=== PATIENT | male | born 1960 | race Two or more races ===

== ENCOUNTER → 2020-01-26 10:06 | Outpatient (BNVA) | payer SELFPAY | PROVIDERS: PCP Internal Medicine; Visit Provider Internal Medicine | DX: S33.9XXD Sprain of unspecified parts of lumbar spine and pelvis, subsequent encounter (principal); M25.552 Pain in left hip; W18.30XD Fall on same level, unspecified, subsequent encounter | CPT/HCPCS: 72100; 73502; 99203 ==

== ENCOUNTER → 2020-01-31 13:02 | Outpatient (BNVA) | payer SELFPAY | PROVIDERS: PCP Family Medicine; Visit Provider Internal Medicine | DX: R10.2 Pelvic and perineal pain (principal); M54.9 Dorsalgia, unspecified; Z91.81 History of falling | CPT/HCPCS: 99214 ==

== ENCOUNTER → 2020-02-07 09:48 | Outpatient (BNVA) | payer SELFPAY | PROVIDERS: PCP Family Medicine; Visit Provider Internal Medicine | DX: M25.552 Pain in left hip (principal); Z91.81 History of falling | CPT/HCPCS: 99214 ==

== ENCOUNTER → 2020-02-20 09:41 | Outpatient (BNVA) | payer SELFPAY | PROVIDERS: PCP Family Medicine; Visit Provider Internal Medicine | DX: M54.9 Dorsalgia, unspecified (principal); M25.552 Pain in left hip; M25.551 Pain in right hip; M79.605 Pain in left leg; M79.604 Pain in right leg; Z91.81 History of falling | CPT/HCPCS: 99213 ==

== ENCOUNTER 2020-03-05 08:00 | Outpatient (RCR) | payer OTHER, SELFPAY ==
[2020-01-30 08:12] VITALS: PULSE 49; O2SAT 97
--- NOTE | 2020-01-30 12:31 | MHC.PT.EP ---
[facility] [place] Office [place] Office [place] Office [address] Janett Casper [address] [phone] F: [phone] F: [phone] F: [phone] F: [phone] Physical Therapy Plan of Care Date of Evaluation: 01/30/20 Date of Surgery: Diagnosis: Fall with musculoskeletal pain (specifically left lower back, buttocks/hip, and lateral left upper leg above the knee joint). Assessment: Pt is a 59 y/o male referred to skilled PT for musculoskeletal pain following a fall at work on Nov 22, 2019. Pt specifically has left low back, hip, and lateral upper leg pain. Assessment reveals mild decreased lumbar ROM (flexion most limited followed by B lateral flexion), impaired hip ROM, decreased hip strength, pain w/ active and passive motion of the hip, tenderness to palpation, mild gait deviations, SI joint asymmetries, (+) SI provocation tests, mild muscle length deficits (L quad, B HS, B hip flexors), pain w/ PA mobs to lumbar spine, and impaired posture. Related functional limitations include: difficulty transitioning from sit to stand, sleeping, rolling over in bed, walking, standing, squatting, and lifting. Pt may have a directional preference towards extension. However, I assessed and corrected his SI joint today and will re-assess NV. MET performed for L anterior innominate rotation. ? L unilaterally extended sacrum. MET limited due to pain. Frequency and Duration: The patient will be seen 2x/week for 6 weeks, minimum of 38 minutes. Short Term Goals: -In 2 weeks, Pt to improve HS length B by at least 8 degrees. -In 3 weeks, Pt to report less than 3/10 pain when getting in/out of bed and rolling over in bed. [place] Goals: -In 6 weeks, Pt to improve LEFI by at least 9 points. -In 6 weeks, Pt to report minimal centralized low back pain only. -In 6 weeks, Pt to demonstrate ability to perform a functional squat w/ proper body mechanics. Treatment Plan: Modalities to reduce pain, spasms and effusion. Manual therapy to restore motion and function. Therapeutic exercise to improve strength and flexibility. Neuromuscular re-education for posture and balance. Therapeutic activities to return to functional activities of daily living. Please sign and return to therapist. Thank you for your referral.
--- NOTE | 2020-04-15 11:00 | MHC.PT.DC ---
[facility] [place] Office [place] Office [place] Office [address] Janett Casper 140 [facility] [phone] F: [phone] F: [phone] F: [phone] F: [phone] Physical Therapy Discharge Report Diagnosis: Fall with musculoskeletal pain (specifically left lower back, buttocks/hip, and lateral left upper leg above the knee joint). Date of Surgery: Date of Evaluation: 01/30/20 Date of Discharge: 04/15/20 Treatments to Date: 11 Cancellations to Date: 0 No Shows to Date: 0 Discharge Status: Recommend MD Follow-up Discharge Summary: Pt has not been seen since 03/07. He was seen for 11 visits s/p work related injury resulting in low back pain. Physical therapy could not help to reduce his pain at all. I suggested to the Pt we hold PT and recommended MD follow up. He has not followed up to schedule additional visits. He will require a new script for PT if he were to return for treatment. Electronically signed by: Teresa Spangler PT, DPT Please sign and return to therapist. Thank you for your referral.
== END 2020-04-15 12:29 | disposition other institution (70) ==
LOC: HO.PT 08:00
PROVIDERS: PCP Family Medicine; Visit Provider Internal Medicine
DX: M79.10 Myalgia, unspecified site (principal); Z91.81 History of falling
CPT/HCPCS: 97014; 97110; 97112; 97140; 97161

== ENCOUNTER 2020-03-05 08:59 | Emergency (ER) | payer SELFPAY ==
[2020-03-05 09:05] VITALS: BP 156/93; PULSE 50; RESP 16; TEMP 36.7; O2SAT 98; BMI 33.0
--- NOTE | 2020-03-05 09:39 | XR_ITS ---
EXAMINATION: XR LUMBOSACRAL SPINE CLINICAL INFORMATION: Low back pain. COMPARISON: Previous exam January 2020 TECHNIQUE: Three views of the lumbosacral spine. FINDINGS: Bone alignment is normal. No fracture or dislocation is seen. Disc spaces are normal. There are small osteophytes at the L3-L4 disc space level. There is mild atherosclerotic disease. XR/XR lumbar spine 2-3V IMPRESSION: Mild degenerative changes.
--- NOTE | 2020-03-05 09:40 | ED.BACK ---
HPI - Back Pain/Injury General Chief Complaint: Back Pain/Injury Stated Complaint: back inj,work related Time Seen by Provider: 03/05/20 09:21 Source: patient Mode of arrival: ambulatory History of Present Illness HPI Narrative: 59-year-old male with a past medical history of hypertension, hyperlipidemia presenting to the ED complaining acute on left-sided low back pain radiating down left lower extremity since November when he had a fall at work. Admits has seen PCP & obtained hip x-rays that were WNL, and has been doing physical therapy with little relief. Believes something is wrong with his back. Denies numbness, tingling, urinary incontinence/retention, dysuria/hematuria, recent falls or trauma since prior incident MD elicited complaint: back pain Related Data Previous Rx's Medication Instructions Recorded acetaminophen [Tylenol Extra 500 mg PO Q6H PRN #20 tab 03/05/20 Strength] cyclobenzaprine 5 mg PO Q8H PRN 5 Days #14 tab 03/05/20 lidocaine [Lidoderm] 1 patch TOPICAL DAILY PRN #30 ea 03/05/20 MDD remove after 12 hours naproxen 500 mg PO BID PRN 10 Days #20 tab 03/05/20 tramadol 50 mg PO Q6H PRN 3 Days #9 tab 03/05/20 Allergies Allergy/AdvReac Type Severity Reaction Status Date / Time No Known Allergies Allergy Verified 03/05/20 09:05 Review of Systems Review of Systems: Constitutional: No Weight loss, No Fever, No Chills Gastrointestinal: No Nausea, No Vomiting, No Abdominal pain Genitourinary: No Dysuria, No Urinary Frequency, No Hematuria, No Urinary Incontinence, No Flank Pain Musculoskeletal: +back pain pain, No Myalgias, No Joint Swelling Skin: No Skin Lesions, No rash Neuro: No Weakness, No Numbness, No Paresthesias Yes all other systems are reviewed and are negative Neurologic: Denies Sensory deficit (Neuro) [facility] Past Medical History Attestation statement: The following information was validated with the patient. Medical History (Updated 03/05/20 @ 10:35 by ADELITA Vasquez) Heart murmur High cholesterol HTN (hypertension) Surgical History (Updated 03/05/20 @ 09:11 by Astrid Montez) H/O hernia repair Social History Social History Smoked in Last 30 Days: No Advance Directives: No Advance Directives Information Provided: Yes Physical Exam Vital Signs: Vital Signs: Last Vital Signs Temp 98.1 F 03/05/20 09:05 Pulse 50 03/05/20 09:05 Resp 16 03/05/20 09:05 BP 156/93 H 03/05/20 09:05 Pulse Ox 98 03/05/20 09:05 Body Mass Index 33.0 Const: General: cooperative and healthy appearing Orientation/consciousness: patient oriented x3 Limitations: no limitations HENMT: Head: Yes normal to inspection Ears: hearing grossly normal bilaterally General nose exam: Normal external nose present Face and sinus: Yes normal facial exam Eyes: General: appearance normal, both eyes and all related structures EOM: EOMs intact bilaterally Neck: Other: No midline cervical spinous tenderness Neck: Yes normal visual inspection Resp: Effort & Inspection: normal respiratory effort Cardio: Rate: regular rate GI: Inspection: Yes normal to inspection Palpation (GI): Soft to palpation : General: Yes no CVA tenderness Back/Spine/Pelvis: Other: No midline thoracic/lumbar spinous tenderness.+lower bilateral lumbar MSK tenderness with appreciable muscle spasm. No step-off Back: no CVA tenderness Skin: Rashes: no rashes Wounds: no wounds Neuro: Other: Ambulating with slow steady gait. No saddle anesthesia. General: patient oriented x3 Gait exam (Neuro): Normal gait present Motor exam (neuro): 5/5 motor strength present throughout Sensory Exam: No Sensory deficit (Neuro) Extrem: General: Yes normal to inspection Course Course Course Narrative: Lumbar x-ray showing mild degenerative changes MDM - Back Pain/Injury MDM Narrative Medical decision making narrative: On exam VS, NAD, no midline spinous tenderness or red flag symptoms. Likely acute on chronic MSK pain/muscle spasm/strain. Low concern for cauda equina/cord compression. Rule out subacute fracture as patient reports never had back x-rays Discharge Plan Discharge Clinical Impression: Sciatica Strain of lumbar region Qualifiers: Encounter type: initial encounter Qualified Code(s): S39.012A - Strain of muscle, fascia and tendon of lower back, initial encounter Patient Disposition: Home, Self-Care Instructions: Acute Low Back Pain (ED) Additional Instructions: Your pain is likely musculoskeletal Flexeril is a muscle relaxer, take at night as it makes you drowsy, do not drive, drink alcohol, or operate machinery while taking it Naproxen as an anti-inflammatory / pain medication, take with food Lidoderm patches are numbing patches, apply to painful area Tramadol an opiate pain medication, take only when pain is severe for the next 3 days In addition take Tylenol at home If symptoms persist or worsen, pain becomes unbearable, you developed urinary retention or incontinence, or weakness return to the ED You need to follow-up with her doctor, possibly need an MRI in the future Prescriptions: New acetaminophen [Tylenol Extra Strength] 500 mg tablet 500 mg PO Q6H PRN (Reason: pain or fever) Qty: 20 RF: 0 lidocaine [Lidoderm] 5 % adhesive patch,medicated 1 patch topical DAILY MDD remove after 12 hours PRN (Reason: pain) Qty: 30 RF: 0 naproxen 500 mg tablet 500 mg PO BID PRN (Reason: pain) 10 Days Qty: 20 RF: 0 cyclobenzaprine 5 mg tablet 5 mg PO Q8H PRN (Reason: pain (scale score 7-10)) 5 Days Qty: 14 RF: 0 tramadol 50 mg tablet 50 mg PO Q6H PRN (Reason: severe pain (scale score 7-10)) 3 Days Qty: 9 RF: 0 Referrals: Jus Stout MD [Physician] - 2 days Cassius Dumont MD [Physician] - 2 days Physician,Unknown [Primary Care Provider] - 2 days (Your primary care doctor)
[2020-03-05] MEDS: Ketorolac Tromethamine 15 MG/ML VIAL IM (09:48)
--- NOTE | 2020-03-05 10:24 | PC.NURSE ---
reports a little relief after toradol injection but continues to rate 8/10
== END 2020-03-05 10:59 | disposition home or self-care (01) ==
PROVIDERS: Emergency Provider Emergency Medicine
DX: S39.012A Strain of muscle, fascia and tendon of lower back, initial encounter (principal); M54.42 Lumbago with sciatica, left side; M54.41 Lumbago with sciatica, right side; Z79.899 Other long term (current) drug therapy
CPT/HCPCS: 72100; 96372; 99284; J1885

== ENCOUNTER 2023-02-02 09:50 | Outpatient (AMB) | payer OTHER, SELFPAY ==
--- NOTE | 2023-02-02 11:14 | MHC.OFFWIV ---
Intake Vital Signs 02/02/23 11:18 Height 5 ft 10 in Weight 223 lb BMI 32.0 BP 142/80 H Blood Pressure Location Lt brachial Position Sitting Respiration 20 Pulse 45 L Pulse Source Pulse Oximeter Temp 98.8 F Temp Source Oral Pulse Oximetry (%) 99 Oxygen Delivery Method Room Air Intake Visit Reasons: [employer]ER 8 weeks mucus chest pain vomiting [phone] Intake Note: Patient is here with illness for 8 weeks, with pneumonia, chest congestion, vomitted once in 8 weeks, coughing up green/yellow mucous, and headaches. Allergies No Known Allergies Allergy (Verified 02/02/23 11:16) Do you need a note to return to daycare/school/sports/work: No HPI HPI Comments History of Present Illness Details Patient is a 62-year-old male in today for a sick visit. He states that for the past 8 weeks he has noticed a cough, sore throat, which has progressively gotten worse over time. He states that he has been coughing up green phlegm and mucus. Denies any fever. Admits SOB on exertion. States he has reproducible chest pain which he believes is from coughing. He has history of pneumonia. He also has COPD and diabetes type 2, which she has not taken any medication for in a while due to running out and insurance issues. He states that it feels similar to episodes of pneumonia that he has had in the past. He did have 1 episode of vomiting over the past 8 weeks which happened 3 days prior to appointment. Head is normocephalic, TMs are intact with effusion. Pharynx normal, nares normal, no mastoid tenderness. No lymphadenopathy. Patient is in no acute distress. He has slight expiratory wheeze. In office EKG demonstrated abnormalities. Patient has notable dyspnea on exertion, it is taking him a couple minutes to catch his breath after walking short distance. In office chest x-ray demonstrated hypertrophy of left-sided heart. Patient likely has upper respiratory infection but cannot rule out other more insipidus causes of dyspnea on exertion. It is my recommendation for the patient to go immediately to the emergency room. I have discussed with patient this option and he is agreeable. He has declined right by ambulance instead will get right ride by personal vehicle. Expect was called to [facility]. Patient is comfortable with this plan. [facility] Medical History (Updated 03/06/20 @ 00:00 by Background Daemon) Heart murmur High cholesterol HTN (hypertension) Surgical History (Updated 03/05/20 @ 09:11 by Astrid Montez) H/O hernia repair Physical Exam Vital Signs: Last Vital Signs Temp 98.8 F 02/02/23 11:18 Pulse 45 L 02/02/23 11:18 Resp 20 02/02/23 11:18 BP 142/80 H 02/02/23 11:18 Pulse Ox 99 02/02/23 11:18 Oxygen Delivery Method Room Air 02/02/23 11:18 BMI result Body Mass Index 32.0 Assessment & Plan Assessment & Plan (1) Dyspnea on exertion: Code(s): R06.09 - Other forms of dyspnea Plan Patient has been referred to the emergency room for evaluation and workup. Called [facility] to give expect. Patient is agreeable to this plan but will travel by private vehicle. Orders: Orders AMB EKG-In Office Today R07.89 - Other chest pain XR chest 2V Today R07.89 - Other chest pain Coding Level of Care Code New Pt Level 4 (55546) Diagnoses Dyspnea on exertion R06.09 Time Spent (min) 25
[2023-02-02 11:18] VITALS: BP 142/80; PULSE 45; RESP 20; TEMP 37.1; O2SAT 99; BMI 32.0
== END 2023-02-02 12:31 | disposition home or self-care (01) ==
PROVIDERS: PCP Nurse Practitioner Family; Visit Provider Nurse Practitioner Primary Care
DX: R06.09 Other forms of dyspnea (principal)
CPT/HCPCS: 99204

== ENCOUNTER 2023-02-02 11:50 | Outpatient (REF) | payer OTHER, SELFPAY ==
--- NOTE | ~2023-02-02 | XR_ITS ---
EXAMINATION: XR CHEST CLINICAL INFORMATION: Chest pain COMPARISON: None available. TECHNIQUE: 2 views of the chest were obtained. FINDINGS: Bilateral low lung volumes. Interstitial prominence. No pneumothorax. Trachea is midline. Cardiomediastinal silhouette is not enlarged. No large pleural effusion. Degenerative changes of the thoracolumbar spine. Soft tissues are unremarkable. XR/XR chest 2V IMPRESSION: 1. Bilateral low lung volumes. 2. Interstitial prominence.
== END 2023-02-02 11:51 | disposition home or self-care (01) ==
LOC: HO.HMGCX 11:50
PROVIDERS: Visit Provider Nurse Practitioner Primary Care
DX: R07.89 Other chest pain (principal)
CPT/HCPCS: 71046

== ENCOUNTER 2023-02-02 12:28 | Emergency (ER) | payer OTHER, MEDICAID, SELFPAY ==
[2023-02-02] VITALS (7 sets, daily range): BP systolic 147–201; BP diastolic 77–94; PULSE 40–57; RESP 14–20; TEMP 36.4–37.1; O2SAT 95–100; BMI 31.6
--- NOTE | ~2023-02-02 | CT_ITS ---
EXAMINATION: CT ANGIOGRAM OF THE CHEST WITH AND WITHOUT CONTRAST (CT PULMONARY ANGIOGRAM FOR PE) CLINICAL INFORMATION: Reason for Exam shortness of breath, elevated D-dimer, BNP, trop COMPARISON: None available. TECHNIQUE: Prior to contrast administration, noncontrast localization images were obtained. Subsequently, multidetector volumetric imaging was performed from the thoracic inlet to below the diaphragms following the administration of 80 mL Omnipaque 350 intravenous contrast. No contrast reaction reported Sagittal, coronal, and MIP oblique sagittal reformatted images were obtained on the CT workstation, uploaded to PACS, and reviewed. This CT examination was performed using dose optimization techniques as appropriate, variously including the following: *Automated exposure control *Adjustment of mA and/or kV according to patient size (this includes techniques or standardized protocols for targeted exams where dose is matched to indication/reason for exam; i.e. extremities or head) *Use of iterative reconstruction technique Total exam dose-length product 392 mGy-cm FINDINGS: QUALITY OF STUDY/CONTRAST BOLUS: Satisfactory. PULMONARY ARTERIES: No pulmonary emboli. THORACIC AORTA: No aneurysm. LUNG: No focal consolidation, nodules or masses. PLEURA: No pleural effusion or pneumothorax. MEDIASTINUM: Normal heart size. No pericardial effusion. No hilar or mediastinal lymphadenopathy. No evidence of septal bowing or right heart strain. CORONARY ARTERY CALCIFICATION: None visualized on this study. CHEST WALL/AXILLA: No axillary or internal mammary lymphadenopathy. OSSEOUS STRUCTURES: No acute or suspicious osseous abnormality. UPPER ABDOMEN: Unremarkable. No reflux of contrast into the hepatic veins to suggest elevated right heart pressures. CT/CT angio chest PE protocol IMPRESSION: Unremarkable examination. No evidence of pulmonary embolism. VTE: negative.
--- NOTE | ~2023-02-02 | XR_ITS ---
EXAMINATION: XR CHEST CLINICAL INFORMATION: Chest pain, SOB. COMPARISON: Chest 02/02/2023 TECHNIQUE: 2 views of the chest were obtained. FINDINGS: No significant abnormality is noted involving the heart, lungs, mediastinum, bony thorax or soft tissues. XR/XR chest 2V IMPRESSION: Unremarkable chest examination.
--- NOTE | 2023-02-02 12:34 | ED.GENADULT ---
HPI - General Adult General Chief complaint: Dyspnea Stated complaint: Abnormal ekg sent by [facility] walk in Time Seen by Provider: 02/02/23 16:31 History of Present Illness HPI narrative: The patient is a 62-year-old male who was referred to the emergency room from an urgent care center. The patient presented to the Urgent Care Center complaining of almost 8 weeks of cough and sore throat which he felt was getting progressively worse. He says that he recently had a change in his insurance and therefore he has not been able to see his regular doctor or take any regular medications. He says that he has a history of hypertension and hyperlipidemia. He says he is a former smoker. He quit smoking 6 years ago. He does not know if he has had a fever. The patient says that he was concerned that his symptoms have been going on for several weeks and therefore went to the urgent care center. He was referred here. He was apparently offered an ambulance to get here but was able to contact a friend for arrival by private vehicle. Related Data Previous Rx's Medication Instructions Recorded acetaminophen 500 mg tablet 500 mg PO Q6H PRN pain or fever 03/05/20 (Tylenol Extra Strength) #20 tabs cyclobenzaprine 5 mg tablet 5 mg PO Q8H PRN pain (scale score 03/05/20 7-10) 5 days #14 tabs lidocaine 5 % topical patch 1 patch topical DAILY PRN pain #30 03/05/20 (Lidoderm) ea naproxen 500 mg tablet 500 mg PO BID PRN pain 10 days #20 03/05/20 tabs tramadol 50 mg tablet 50 mg PO Q6H PRN severe pain 03/05/20 (scale score 7-10) 3 days #9 tabs albuterol sulfate 90 mcg/actuation 2 puff inhalation Q4-6H PRN 02/02/23 aerosol inhaler shortness of breath or wheezing #8.5 grams amlodipine 5 mg tablet 5 mg PO DAILY #30 tabs 02/02/23 Allergies Allergy/AdvReac Type Severity Reaction Status Date / Time No Known Allergies Allergy Verified 02/02/23 11:16 Review of Systems Review of Systems: Yes all other systems are reviewed and are negative [facility] Past Medical History Medical History (Updated 02/02/23 @ 21:58 by Elliott Hawkins MD) Heart murmur High cholesterol HTN (hypertension) Surgical History (Updated 03/05/20 @ 09:11 by Astrid Montez) H/O hernia repair Social History Smoked in Last 30 Days: No Use of substances other than those prescribed or required for medical reasons: No Advance Directives: No Advance Directives Information Provided: No Physical Exam ED Vital Signs: Vital Signs - 24 hr 02/02/23 12:33 02/02/23 17:00 02/02/23 17:20 Temperature 98.1 F 98.1 F 98.2 F Pulse Rate 50 43 L 54 Pulse Rate [Monitor] Respiratory Rate 20 16 16 Blood Pressure 173/93 H 176/86 H 147/83 H Pulse Oximetry 98 95 98 Oxygen Delivery Method Room Air Room Air Room Air 02/02/23 18:15 02/02/23 19:48 02/02/23 19:48 Temperature 98.7 F Pulse Rate 40 L 57 Pulse Rate [Monitor] 51 Respiratory Rate 14 18 Blood Pressure 201/94 H 183/82 H Pulse Oximetry 100 98 Oxygen Delivery Method Room Air Room Air 02/02/23 20:19 02/02/23 21:30 Temperature 97.6 F 98.4 F Pulse Rate 49 L 46 L Pulse Rate [Monitor] Respiratory Rate 16 15 Blood Pressure 180/77 H 184/88 H Pulse Oximetry 98 99 Oxygen Delivery Method Room Air Room Air BMI result Body Mass Index 31.6 Const Other: The patient is awake and alert. He is a pleasant 62-year-old. He does not appear in acute distress. HENMT Other: Face is symmetrical. Mucous membranes moist. Eyes Other: Pupils are round equal, conjunctivae are clear Neck Other: No JVD Resp Other: Breath sounds are fairly clear bilaterally. No francesco wheezing or crackles. No increased work of breathing. Cardio Other: The patient has regular rate and rhythm with no murmur. The rate was fundamentally regular with occasional irregularities. GI Other: The abdomen is soft and nontender. Skin Other: The skin is dry and unremarkable. Neuro Other: The patient is awake and alert. Face is symmetrical. Speech is clear. Moving all extremities normally. Grossly neurologically intact. Extrem Other: No peripheral edema Course Course Course Narrative: This is an RME: Additional HPI, ROS, PE not included below will be deferred to primary provider. This is a 89-extk-oft-male, with a hx of heart murmur, HTN, HLD, presenting to the emergency department with complaints of productive cough x 8 weeks, dyspnea on exertion. He has been without his medications for ?some time? due to insurance difficulties. An expect was called in from walk in clinic, concerning for first-degree AV block on EKG with QRS widening. Plan: Labs, EKG, chest x-ray, point of care glucose Medications Administered Discontinued Medications Generic Name Dose Route Start Last Admin Trade Name Markellq PRN Reason Stop Dose Admin Albuterol Sulfate 2 puff 02/02/23 21:04 02/02/23 22:20 Albuterol Sulfate 90 Mcg 8 Gm Inhaler INHALE 02/02/23 21:05 2 puff ONCE ONE Administration Amlodipine Besylate 5 mg 02/02/23 21:01 02/02/23 21:09 Amlodipine Besylate 5 Mg Tablet PO 02/02/23 21:02 5 mg ONCE ONE Administration Protocol Iohexol 100 ml 02/02/23 20:10 02/02/23 20:10 Iohexol 350 Mg/Ml 100 Ml Infus..Btl IV 02/02/23 20:11 65 ml ONCE ONE Administration Medical Decision Making Medical Decision Making [facility] Narrative: The patient is a pleasant 62-year-old male who presents saying he has had cough for almost 8 weeks that he wanted to get checked. He initially went to an urgent care and was referred to the emergency room here. Prior to my evaluation the patient had testing done including an EKG that shows sinus bradycardia at 57 beats per minute with first-degree AV block and frequent PVCs. Clinically the patient's history was not suggestive of an acute coronary syndrome but he had an initial troponin that was elevated at 56. A repeat troponin was 68. The patient's proBNP is elevated at 716. Patient's D-dimer was elevated at 744. A CT pulmonary angiogram showed no evidence of pulmonary embolism and also did not show any signs of pneumonia or other acute lung disease. Patient's CBC and differential were unremarkable. I discussed the case with the covering housekeeper. The patient's troponin rise is slight and given that his history is not suggestive of an acute coronary syndrome this does not seem to be a case requiring hospitalization. The patient was noted to be hypertensive and bradycardic. The patient says he is chronically bradycardic. He has not been on antihypertensive medications for some time because of an insurance change and a loss of his previous primary care doctor. He has a new primary care doctor but has not yet been able to get in to see him to get ongoing care. I will prescribe amlodipine with the patient's blood pressure. The patient was also concerned about his original complaint which was a sense of wheezing and respiratory congestion. He will be prescribed albuterol. Lab Data 02/02/23 13:04 02/02/23 13:04 Labs: Lab Results 02/02/23 02/02/23 02/02/23 Range/Units 12:39 13:03 13:04 WBC 3.5 L (4.8-10.8) X10*3/uL RBC 4.77 (4.60-5.80) X10*6/uL Hgb 13.9 L (14.0-18.0) g/dl Hct 42.5 (42.0-52.0) % MCV 89.1 (80.0-98.0) fL MCH 29.1 (27.0-33.0) pg MCHC 32.7 (31.0-36.0) g/dl RDW 14.1 (11.0-16.0) % Plt Count 175 (160-400) X10*3/uL MPV 10.9 (9.4-12.4) fL Immature Gran % (Auto) 1.4 H (0.0-0.4) % Neut % (Auto) 48.0 (45-73) % Lymph % (Auto) 34.3 (20-40) % Tillman % (Auto) 10.9 (2-11) % Eos % (Auto) 4.0 (0-4) % Baso % (Auto) 1.4 (0-2) % Lymph # (Auto) 1.2 (1.2-4.9) X10*3/uL [place] # (Auto) 0.4 (0.1-1.2) X10*3/uL Eos # (Auto) 0.1 (0.0-0.4) X10*3/uL Baso # (Auto) 0.1 (0.0-0.2) X10*3/uL Abs Immat Gran (auto) 0.05 H (0.00-0.03) X10*3/uL Absolute Neuts (auto) 1.7 L (2.0-8.3) x10*3/uL Absolute Nucleated RBC 0.000 (0.0-0.012) X10*3/uL Nucleated RBC % (auto) 0.0 (0.0-0.2) /100WBC D-Dimer High Sensitivty NG/ML Sodium 139 (135-145) mmol/L Potassium 3.9 (3.3-5.1) mmol/L Chloride 109 H (96-108) mmol/L Carbon Dioxide 25 (22-29) mmol/L Anion Gap 9 L (12-20) BUN 17 H (9-16) mg/dL Creatinine 0.95 (0.5-1.4) mg/dL Estim Creat Clear Calc 94.2 Estimated GFR > 60 POC Glucose 98 (60-115) mg/dL Random Glucose 106 (60-115) mg/dL Calcium 8.6 (8.4-10.2) mg/dL Total Bilirubin 0.3 (0.0-1.0) mg/dL Direct Bilirubin 0.1 (0.0-0.5) mg/dL AST 22 (5-37) U/L ALT 20 (0-40) U/L Alkaline Phosphatase 54 (39-117) U/L Troponin I High Sens 56.3 H (<3.5-35.0) ng/L C-Reactive Protein 0.16 (< or = 0.50) mg/dL B-Natriuretic Peptide 716 H (<100) pg/mL Total Protein 7.0 (6.5-8.0) g/dL Albumin 4.0 (3.5-5.0) g/dL Urine Color Yellow Urine Appearance Clear Urine pH 6.0 (5.0-9.0) Ur Specific [place] 1.015 (1.005-1.025) Urine Protein 30 (1+) H (Neg-Trace) mg/dL Urine Glucose (UA) Negative (Negative) mg/dL Urine Ketones Negative (Negative) mg/dL Urine Blood Negative (Negative) Urine Nitrite Negative (Negative) Ur Leukocyte Esterase Negative (Negative) Urine RBC 0-2 (0-2) /HPF Urine WBC 0-5 (0-5) /HPF Ur Squamous Epith Cells 0-2 (0-2) /HPF Urine Bacteria None Seen (None Seen) Hyaline Casts 0-2 (0-2) /LPF Influenza Type A (PCR) NEGATIVE (Negative) Influenza Type B (PCR) NEGATIVE (Negative) RSV RNA Qual (PCR) NEGATIVE (Negative) SARS-CoV-2 RNA (RT-PCR) NEGATIVE (Negative) 02/02/23 02/02/23 Range/Units 17:22 18:18 WBC (4.8-10.8) X10*3/uL RBC (4.60-5.80) X10*6/uL Hgb (14.0-18.0) g/dl Hct (42.0-52.0) % MCV (80.0-98.0) fL MCH (27.0-33.0) pg MCHC (31.0-36.0) g/dl RDW (11.0-16.0) % Plt Count (160-400) X10*3/uL MPV (9.4-12.4) fL Immature Gran % (Auto) (0.0-0.4) % Neut % (Auto) (45-73) % Lymph % (Auto) (20-40) % Tillman % (Auto) (2-11) % Eos % (Auto) (0-4) % Baso % (Auto) (0-2) % Lymph # (Auto) (1.2-4.9) X10*3/uL [place] # (Auto) (0.1-1.2) X10*3/uL Eos # (Auto) (0.0-0.4) X10*3/uL Baso # (Auto) (0.0-0.2) X10*3/uL Abs Immat Gran (auto) (0.00-0.03) X10*3/uL Absolute Neuts (auto) (2.0-8.3) x10*3/uL Absolute Nucleated RBC (0.0-0.012) X10*3/uL Nucleated RBC % (auto) (0.0-0.2) /100WBC D-Dimer High Sensitivty 744 NG/ML Sodium (135-145) mmol/L Potassium (3.3-5.1) mmol/L Chloride (96-108) mmol/L Carbon Dioxide (22-29) mmol/L Anion Gap (12-20) BUN (9-16) mg/dL Creatinine (0.5-1.4) mg/dL Estim Creat Clear Calc Estimated GFR POC Glucose 118 H (60-115) mg/dL Random Glucose (60-115) mg/dL Calcium (8.4-10.2) mg/dL Total Bilirubin (0.0-1.0) mg/dL Direct Bilirubin (0.0-0.5) mg/dL AST (5-37) U/L ALT (0-40) U/L Alkaline Phosphatase (39-117) U/L Troponin I High Sens 68.0 H (<3.5-35.0) ng/L C-Reactive Protein (< or = 0.50) mg/dL B-Natriuretic Peptide (<100) pg/mL Total Protein (6.5-8.0) g/dL Albumin (3.5-5.0) g/dL Urine Color Urine Appearance Urine pH (5.0-9.0) Ur Specific [place] (1.005-1.025) Urine Protein (Neg-Trace) mg/dL Urine Glucose (UA) (Negative) mg/dL Urine Ketones (Negative) mg/dL Urine Blood (Negative) Urine Nitrite (Negative) Ur Leukocyte Esterase (Negative) Urine RBC (0-2) /HPF Urine WBC (0-5) /HPF Ur Squamous Epith Cells (0-2) /HPF Urine Bacteria (None Seen) Hyaline Casts (0-2) /LPF Influenza Type A (PCR) (Negative) Influenza Type B (PCR) (Negative) RSV RNA Qual (PCR) (Negative) SARS-CoV-2 RNA (RT-PCR) (Negative) Discharge Plan Discharge Clinical Impression: Diffuse wheezing, Hypertension, Bradycardia Patient Disposition: Home, Self-Care Additional Instructions: Your testing today does not show any signs of pneumonia or significant infection. Please use the albuterol inhaler 2 puffs every 4 hours as needed for coughing or wheezing. You also had elevated blood pressure here in the emergency room. Please use the amlodipine once a day as prescribed. Please contact your primary care doctor's office to see if they can see you earlier than your currently scheduled. Additionally I have given you the name and number of the cardiology office. I think it would be good for you to make a cardiology appointment as well. Please call the office to see if you can be seen in the next couple of weeks. Return to the emergency room if significantly worse. Prescriptions: New amlodipine 5 mg tablet 5 mg PO DAILY Qty: 30 0RF albuterol sulfate 90 mcg/actuation HFA aerosol inhaler 2 puff inhalation Q4-6H PRN (Reason: shortness of breath or wheezing) Qty: 8.5 0RF No Action acetaminophen [Tylenol Extra Strength] 500 mg tablet 500 mg PO Q6H PRN (Reason: pain or fever) Qty: 20 0RF lidocaine [Lidoderm] 5 % adhesive patch,medicated 1 patch topical DAILY MDD remove after 12 hours PRN (Reason: pain) Qty: 30 0RF Rx Instructions: leave on most painful area for up to 12 hrs naproxen 500 mg tablet 500 mg PO BID PRN (Reason: pain) 10 Days Qty: 20 0RF cyclobenzaprine 5 mg tablet 5 mg PO Q8H PRN (Reason: pain (scale score 7-10)) 5 Days Qty: 14 0RF tramadol 50 mg tablet 50 mg PO Q6H PRN (Reason: severe pain (scale score 7-10)) 3 Days Qty: 9 0RF Referrals: Trey Dickson FNP-[facility] [Primary Care Provider] - Bossman John MD [Physician] - (Patient with likely LVH, significant hypertension, chronic bradycardia)
--- NOTE | 2023-02-02 12:37 | ECG_ITS ---
Test Reason : CP/ABNORMAL EKG Blood Pressure : / mmHG Vent. Rate : 057 BPM Atrial Rate : 043 BPM P-R Int : 268 ms QRS Dur : 136 ms QT Int : 496 ms P-R-T Axes : 049 -41 139 degrees QTc Int : 482 ms Marked sinus bradycardia with 1st degree A-V block with frequent Premature ventricular complexes Left anterior fascicular block Left ventricular hypertrophy with QRS widening and repolarization abnormality ( R in aVL , Henry product , Romhilt-Garces ) Cannot rule out Anteroseptal infarct , age undetermined Abnormal ECG No previous ECGs available Referred By: Shawanda Mendez Electronically Signed By:ABILIO MEREDITH MD
[2023-02-02 12:44] LABS: Glucose, Whole Blood 98 mg/dL (60-115)
[2023-02-02 13:14] LABS: MANUAL DIFF FLAG NO
[2023-02-02 13:17] LABS: Basophils Absolute Auto 0.1 X10*3/uL (0.0-0.2); Basophils Percent Auto 1.4 % (0-2); Eosinophils Absolute Auto 0.1 X10*3/uL (0.0-0.4); Hematocrit 42.5 % (42.0-52.0); Hemoglobin 13.9 g/dl (14.0-18.0); Imm Gran Abs Auto 0.05 X10*3/uL (0.00-0.03); Imm Gran Pct Auto 1.4 % (0.0-0.4); Lymphocytes Absolute Auto 1.2 X10*3/uL (1.2-4.9); Lymphocytes Percent Auto 34.3 % (20-40); Mean Corpuscular HGB Conc 32.7 g/dl (31.0-36.0); Mean Corpuscular Hemoglobin 29.1 pg (27.0-33.0); Mean Corpuscular Volume 89.1 fL (80.0-98.0); Mean Platelet Volume 10.9 fL (9.4-12.4); Monocytes Absolute Auto 0.4 X10*3/uL (0.1-1.2); Monocytes Percent Auto 10.9 % (2-11); Neutrophils Absolute Auto 1.7 x10*3/uL (2.0-8.3); Platelet Count 175 X10*3/uL (160-400); Red Blood Count 4.77 X10*6/uL (4.60-5.80); Red Cell Distribution Width 14.1 % (11.0-16.0); White Blood Count 3.5 X10*3/uL (4.8-10.8)
[2023-02-02 13:19] LABS: Appearance Urine Clear; Color Urine Yellow; Glucose Urine UA Negative (Negative); Leukocyte Esterase Urine Negative (Negative); Nitrite Urine Negative (Negative); Specific Gravity - Urine 1.015 (1.005-1.025); UMIC TRIGGER UACC YES; Urine Blood Negative (Negative); Urine Ketones Negative (Negative); Urine Protein 30 (1+) mg/dL (Neg-Trace)
[2023-02-02 13:24] LABS: Bacteria Urine None Seen (None Seen); Hyaline Casts Urine 0-2 /LPF (0-2); RBC Urine 0-2 /HPF (0-2); Squamous Epithelial Cell Urine 0-2 /HPF (0-2); WBC Urine 0-5 /HPF (0-5)
[2023-02-02 13:33] LABS: Alanine Aminotransferase 20 U/L (0-40); Alkaline Phosphatase 54 U/L (39-117); Anion Gap 9 (12-20); Aspartate Amino Transferase 22 U/L (5-37); Bilirubin Direct 0.1 mg/dL (0.0-0.5); Bilirubin Total 0.3 mg/dL (0.0-1.0); Blood Urea Nitrogen 17 mg/dL (9-16); Calcium 8.6 mg/dL (8.4-10.2); Carbon Dioxide 25 mmol/L (22-29); Chloride 109 mmol/L (96-108); Creatinine Clr Calc Pharmacy 94.2; Estimated Glomerular Filt Rate > 60; Glucose Random 106 mg/dL (60-115); Potassium 3.9 mmol/L (3.3-5.1); Sodium 139 mmol/L (135-145)
[2023-02-02 13:35] LABS: Troponin-I High Sensitivity 56.3 ng/L (<3.5-35.0)
[2023-02-02 13:36] LABS: B Type Natriuretic Peptide 716 pg/mL (<100)
[2023-02-02 13:55] LABS: Influenza A PCR NEGATIVE (Negative); Influenza B PCR NEGATIVE (Negative); Resp Syncy Virus RNA Qual PCR NEGATIVE (Negative); SARS COV2 PCR INHOUSE NEGATIVE (Negative)
[2023-02-02 17:03] LABS: C Reactive Protein 0.16 mg/dL (< or = 0.50)
--- NOTE | 2023-02-02 17:21 | MHC.EDTECH ---
THIS PCT JUST ASSUMED CARE OF pT ,VITALS TAKEN ,BLOOD DRAWN AND SENT TO LAB ,THIS PCT NOTICE THAT PT BLOOD PRESSURE WAS HIGH AND HEART RATE IS LOW ,MEMO STALEY AWARE ,PT WAS HOOKED UP TO [employer] ,CALL HUERTAS WITHIN PT REACH .
[2023-02-02 17:39] LABS: D Dimer High Sensitivity 744 NG/ML
--- NOTE | 2023-02-02 18:05 | ECG_ITS ---
Test Reason : SOB Blood Pressure : / mmHG Vent. Rate : 041 BPM Atrial Rate : 041 BPM P-R Int : 272 ms QRS Dur : 136 ms QT Int : 508 ms P-R-T Axes : 020 -40 148 degrees QTc Int : 419 ms Marked sinus bradycardia with 1st degree A-V block with occasional Premature ventricular complexes Left anterior fascicular block Left ventricular hypertrophy with QRS widening and repolarization abnormality ( R in aVL , [place] product , Romhilt-Garces ) Cannot rule out Anteroseptal infarct (cited on or before 02-FEB-2023) Abnormal ECG When compared with ECG of 02-FEB-2023 12:48, QT has shortened Referred By: Elliott Hawkins Electronically Signed By:ABILIO MEREDITH MD
--- NOTE | 2023-02-02 18:19 | MHC.EDTECH ---
PATIENT REPEATED EKG TAKEN AND WAS READ BY PROVIDER ,BLOOD SUGAR CHECK ,MEMO PEARSON AWARE OF RESULT OF 118 ,VITALS TAKEN ,RN AWARE OF HIGH BLOOD PRESSURE .
[2023-02-02 18:46] LABS: Glucose, Whole Blood 118 mg/dL (60-115)
--- NOTE | 2023-02-02 19:55 | PC.NURSE ---
PT IN CT SCAN AT THIS TIME.
[2023-02-02] MEDS: iohexoL 350 MG/ML 100 ML INFUS..BTL IV (20:10)
--- NOTE | 2023-02-02 20:29 | MHC.EDTECH ---
Provider said Patient cant eat ,pt was given tuna fish sandwich and rosa shaheed .
[2023-02-02] MEDS: amLODIPine Besylate 5 MG TABLET PO (21:09)
[2023-02-02] MEDS: Albuterol Sulfate 90 MCG 8 GM INHALER 2 PUFF INHALE (22:20)
== END 2023-02-03 02:10 | disposition home or self-care (01) ==
PROVIDERS: Physician Assistant Medical; Emergency Provider Emergency Medicine; PCP Nurse Practitioner Family
DX: R06.02 Shortness of breath (principal); R00.1 Bradycardia, unspecified; R05.9 Cough, unspecified; R06.2 Wheezing; J02.9 Acute pharyngitis, unspecified; I10 Essential (primary) hypertension; Z20.822 Contact with and (suspected) exposure to COVID-19; Z20.828 Contact with and (suspected) exposure to other viral communicable diseases; Z79.899 Other long term (current) drug therapy
CPT/HCPCS: 0241U; 36415; 71046; 71275; 80048; 80076; 81001; 82947; 83880; 84484; 85025; 85379; 86140; 93005; 99284; 99285; Q9967

== ENCOUNTER 2023-03-02 10:49 | Outpatient (AMB) | payer OTHER, SELFPAY ==
--- NOTE | 2023-03-02 12:20 | MHC.OFFWIV ---
Intake Vital Signs 03/02/23 12:28 Height 5 ft 10 in Weight 239 lb 2 oz BMI 34.3 BP 140/80 H Blood Pressure Location Rt brachial Position Sitting Pulse 60 Pulse Source Pulse Oximeter Temp 97.6 F Temp Source Temporal Artery Scan Pulse Oximetry (%) 99 Oxygen Delivery Method Room Air Intake Visit Reasons: EP cough congestion for 13weeks [id number] Intake Note: Pt is here c/o cough, body aches, and not feeling well for 13 weeks. Pt states otc medications are not working. Patient Tobacco Use Status: Never used Tobacco Allergies No Known Allergies Allergy (Verified 03/02/23 12:20) HPI HPI Comments History of Present Illness Details This is a 62-year-old male with a past medical history of hypertension, asthma, COPD not currently oxygen dependent and xef-liyibtv-gjmusvaci diabetes who does not currently have a PCP of record and is without medications presenting for evaluation of fatigue, nocturnal cough and occasional shortness of breath that he has had for the past 14 weeks. Patient also reports urinary frequency without dysuria. He denies having any fevers, chills, chest pain, not vomiting no pain or back pain. [facility] Medical History Heart murmur High cholesterol HTN (hypertension) Surgical History (Updated 03/05/20 @ 09:11 by Astrid Montez) H/O hernia repair Social History Patient Tobacco Use Status: Never used Tobacco Review of Systems Const All systems reviewed & are unremarkable except as noted in HPI and below Reports no additional complaints Eyes Reports no additional complaints ENT Reports no additional complaints Card Denies chest pain and Reports dyspnea Resp Reports cough and Reports dyspnea GI Reports no additional complaints Reports no additional complaints and Reports nocturia Neuro Reports no additional complaints Psych Reports no additional complaints Physical Exam Vital Signs: Last Vital Signs Temp 97.6 F 03/02/23 12:28 Pulse 60 03/02/23 12:28 BP 140/80 H 03/02/23 12:28 Pulse Ox 99 03/02/23 12:28 Oxygen Delivery Method Room Air 03/02/23 12:28 BMI result Body Mass Index 34.3 Pt is afebrile and is not hypoxic. Const General: cooperative, healthy appearing, comfortable and no acute distress Nutritional Appearance: well nourished Orientation/consciousness: patient oriented x3 Limitations: no limitations HEENT Head: Yes normal to inspection Ears: hearing grossly normal bilaterally, external ears normal, TM's normal bilaterally and EAC's normal General nose exam: Normal external nose present Face and sinus: Yes normal facial exam and No sinus tenderness Mouth: Normal oral and palatal mucosa present and moist mucous membranes Resp Effort & Inspection: normal respiratory effort, able to speak in complete sentences, normal respiratory pattern, no cough and no respiratory distress Auscultation: clear to auscultation bilaterally Cardio Rate: regular rate Rhythm: regular rhythm GI Palpation (GI): Soft to palpation, nontender and no guarding Skin General skin exam: no rashes or lesions noted Neuro General: patient oriented x3 Psych Appearance: grossly normal Mental Status: mental status grossly normal Insight: Good insight present (Psych) Judgement: Good judgement present (Psych) Results AMB Random Glucose (hemocue) AMB Random Glucose (hemocue) 100 mg/dL Last Edit by Linda Mason CMA on 03/02/23 13:31 AMB Urinalysis, Automated UA Leukoctes 0 Seth/uL Last Edit by Linda Mason CMA on 03/02/23 13:32 UA Nitrite Negative Last Edit by Linda Mason CMA on 03/02/23 13:32 UA Urobilinogen 0.2 mg/dL Last Edit by Linda Mason CMA on 03/02/23 13:32 UA Protein 30 mg/dL Last Edit by Linda Mason CMA on 03/02/23 13:32 UA pH 6.0 Last Edit by Linda Mason CMA on 03/02/23 13:32 UA Blood 0 Isaac/uL Last Edit by Linda Mason CMA on 03/02/23 13:32 UA Specific [place] 1.025 Last Edit by Linda Mason CMA on 03/02/23 13:32 UA Ketone Negative Last Edit by Linda Mason CMA on 03/02/23 13:32 UA Bilirubin 0 mg/dL Last Edit by Linda Mason CMA on 03/02/23 13:32 UA Glucose 0 mg/dL Last Edit by Linda Mason CMA on 03/02/23 13:32 Results Reviewed Results Reviewed: Laboratory Last Values Random Glu (Clinic) 100 mg/dL 03/02/23 13:29 Urine pH (Auto) 6.0 03/02/23 13:29 Specific [place] (Auto) 1.025 03/02/23 13:29 Urine Protein (Auto) 30 mg/dL 03/02/23 13:29 Glucose (UA)(Auto) 0 mg/dL 03/02/23 13:29 Urine Ketones (Auto) Negative 03/02/23 13:29 Urine Blood (Auto) 0 Isaac/uL 03/02/23 13:29 Urine Nitrite (Auto) Negative 03/02/23 13:29 Urine Bilirubin (Auto) 0 mg/dL 03/02/23 13:29 Urine Urobilinogen (Auto) 0.2 mg/dL 03/02/23 13:29 Leukocyte Esterase (Auto) 0 Seth/uL 03/02/23 13:29 Glucose 100; no glucosuria on urinalysis. Assessment & Plan Assessment & Plan (1) COPD (chronic obstructive pulmonary disease): Code(s): J44.9 - Chronic obstructive pulmonary disease, unspecified Plan: Imaging including CTA chest reviewed from ED visit in January 2023. Will reinitiate Advair BID; follow-up with new PCP in April as previously scheduled for routine maintenance and primary care. Patient reports blood glucose never >150mg/dL but will keep a log of blood glucose values at home and bring to PCP appointment. Patient will return to urgent care for any blood glucose values consistently >300 or <60mg/dL. (2) Nocturnal polyuria: Code(s): R35.81 - Nocturnal polyuria Plan: Pt to track blood glucose values; urinalysis not consistent with glucosuria or UTI. Orders: Orders AMB Urinalysis Automated 03/02/23 Z13.9 - Encounter for screening, unspecified AMB Random Glucose (hemocue) 03/02/23 Z13.9 - Encounter for screening, unspecified Medications: New fluticasone propion-salmeterol 250-50 mcg/dose (Advair Diskus) 1 inh inhalation BID 1 ea 2RF Coding Level of Care Code New Pt Level 4 (49599) Diagnoses COPD (chronic obstructive pulmonary disease) J44.9 Nocturnal polyuria R35.81 Time Spent (min) 35
[2023-03-02 12:28] VITALS: BP 140/80; PULSE 60; TEMP 36.4; O2SAT 99; BMI 34.3
== END 2023-03-02 13:38 | disposition home or self-care (01) ==
PROVIDERS: PCP Nurse Practitioner Family; Visit Provider Physician Assistant
DX: J44.9 Chronic obstructive pulmonary disease, unspecified (principal); R35.81 Nocturnal polyuria
CPT/HCPCS: 81003; 82948; 99204; 99214

== ENCOUNTER → 2023-05-05 15:57 | Outpatient (AMB) | payer OTHER, SELFPAY ==
[2023-05-05 15:59] VITALS: BP 170/90; PULSE 47; O2SAT 96; BMI 34.3
--- NOTE | 2023-05-05 15:59 | MHC.PC.OV ---
Vital Signs 05/05/23 15:59 Height 5 ft 10 in Weight 239 lb BMI 34.3 BP 170/90 H Blood Pressure Location Lt brachial Position Sitting Pulse 47 L Pulse Source Pulse Oximeter Pulse Oximetry (%) 96 Oxygen Delivery Method Room Air Intake Visit Reasons: NPV / high bp /diabetic Intake Note: pt is here for new patient, establish maikol, hx of high blood pressure and diabetes Fire Assistant Required: No Accompanied by: Self / Same As Patient Allergies jardiance Allergy (Intermediate, Uncoded 05/05/23 16:40) Rash trulicity Allergy (Intermediate, Uncoded 05/05/23 16:41) Muscle Pain Medication List - Last Reconciled 05/05/23 by JOSELUIS Gonzalez No Known Home Meds Tobacco use date assessed: 05/05/23 Dental Screening Dental Screen Date: 05/05/23 Did you have a dental visit in the last 12 months?: Yes Did you have a dental problem in the last 6 months where you did not have access to dental care?: No Was dental information given to patient?: Patient has dentist HPI NPV / high bp /diabetic HPI Details New pt is here to establish care. Pt is a diabetic. He reports being off all medications for at least 2 years. A1C in office today is . Denies polyuria, polydipsia, and neuropathy. Pt denies any signs and symptoms of hypoglycemia and does know how to correct it. Pt does not check his blood sugar. He reports his eye exam was less than a year ago. Will start atorvastatin 20mg. Will also start losartan 25mg (renal protection and HTN) and amlodipine 2.5mg. Due for PSA, will order. Denies dribbling with urination, weak stream, and frequent nocturia. Due for colon screen, will refer to GI. Pt is bradycardic today, though he reports this is normal for him. He has been worked up by cardiology in the past. Pt has a hx of heart murmur, reports his last echo was years ago. Will order repeat echo. Pt has a hx of COPD, refuses inhalers. Denies chest pain, shortness of breath, headache, dizziness, and blurred vision. [facility] Medical History (Updated 05/05/23 @ 18:28 by JOSELUIS Gonzalez) Pneumococcal vaccination declined Rheumatoid arthritis Emphysema of lung Heart murmur High cholesterol HTN (hypertension) Surgical History H/O hernia repair Family History Father Hypertension Diabetes Mother Hypertension Diabetes Social History Housing: House Alcohol intake: never Patient Tobacco Use Status: Former Tobacco user Cigarette Packs Per Day: 3 service: No Cognitive needs: No Hearing needs: No Vision needs: No Questionnaire AUDIT C Alcohol Use Questionnaire (AUDIT-C) 1. How often do you have a drink containing alcohol?: Monthly or less 2. How many drinks containing alcohol do you have on a typical day when you are drinking?: 1 or 2 3. How often do you have six or more drinks on one occasion?: Never Total Score: 1 Score Reviewed/Action Taken: Yes Physical exam (Primary Care) Vital Signs: Last Vital Signs Pulse 47 L 05/05/23 15:59 BP 170/90 H 05/05/23 15:59 Pulse Ox 96 05/05/23 15:59 Oxygen Delivery Method Room Air 05/05/23 15:59 BMI result Body Mass Index 34.3 Tobacco/Smoking Status: Tobacco use Status Tobacco use date assessed 05/05/23 05/05/23 16:00 Patient Tobacco Use Status Former Tobacco user 05/05/23 16:06 Const General: cooperative and comfortable Nutritional Appearance: obese Resp Effort & Inspection: normal respiratory effort Auscultation: diminished lung sounds Cardio Rate: regular rate Rhythm: regular rhythm Heart sounds: S1 normal heart sound present, S2 normal heart sound present and Murmur heart sound present systolic Skin Other: right zhou with brownish reddish scarring/discoloration Extrem Other: bilat feet: + sensation with use of monofilament, feet intact, trace edema to BLE Assessment and Plan Assessment & Plan (1) Screening for colon cancer: Code(s): Z12.11 - Encounter for screening for malignant neoplasm of colon Plan: Referred to GI (2) Diabetes: Code(s): E11.9 - Type 2 diabetes mellitus without complications Plan: Labs ordered (3) Screening PSA (prostate specific antigen): Code(s): Z12.5 - Encounter for screening for malignant neoplasm of prostate Plan: PSA ordered (4) Heart murmur: Code(s): R01.1 - Cardiac murmur, unspecified Plan: Echo ordered (5) HTN (hypertension): Code(s): I10 - Essential (primary) hypertension Plan: started medication today, will have him take his BP at home, writing down values Plan The patient agreed to the use of a biomedical engineering professor for this encounter. Scribed for TOM Knight-BC by Sofi Chand biomedical engineering professor, on 05/05/2023 at 16:35 EST. Orders: Orders Complete Blood Count Auto Diff Today E11.9 - Type 2 diabetes mellitus without complications Comprehensive [place]. Panel Fast Today E11.9 - Type 2 diabetes mellitus without complications Prostate Specific Antigen Scr Today Z12.5 - Encounter for screening for malignant neoplasm of prostate CA echo transthoracic complete Today R01.1 - Cardiac murmur, unspecified TSH reflex Free T4 Today E11.9 - Type 2 diabetes mellitus without complications UA CC w/rflx Micro + Cult Today E11.9 - Type 2 diabetes mellitus without complications Lipid Panel Today E11.9 - Type 2 diabetes mellitus without complications Referrals Gastroenterology Referral Z12.11 - Encounter for screening for malignant neoplasm of colon Medications: New losartan 25 mg PO DAILY 30 tabs 2RF amlodipine 2.5 mg PO DAILY 30 tabs 3RF atorvastatin 20 mg PO BEDTIME 30 tabs 3RF Coding Level of Care Code New Pt Level 3 (91447) Diagnoses Screening for colon cancer Z12.11 Diabetes E11.9 Screening PSA (prostate specific antigen) Z12.5 Heart murmur R01.1 HTN (hypertension) I10
== END ==
PROVIDERS: PCP Nurse Practitioner Family; Visit Provider Nurse Practitioner Family
DX: Z12.11 Encounter for screening for malignant neoplasm of colon (principal); E11.9 Type 2 diabetes mellitus without complications; Z12.5 Encounter for screening for malignant neoplasm of prostate; R01.1 Cardiac murmur, unspecified; I10 Essential (primary) hypertension
CPT/HCPCS: 83036; 99203; 99213

== ENCOUNTER → 2023-06-01 10:59 | Outpatient (REF) | payer OTHER, SELFPAY ==
--- NOTE | 2023-06-01 11:02 | CA_ITS ---
Transthoracic Echocardiogram Patient (Last, First, Middle): Prince Koo, Gender: Male Date of : 1960 Age: 62 Procedure Date: 06/01/2023 Procedure Type: Transthoracic Echocardiogram Location: OP Height: 177. cm Weight: 106.6 kg BSA: 2.23 m2 Heart Rate: 39 bpm BP: 175 / 80 mmHg Pst Manager: BONY Referring MD: Trey Dickson [facility] Symptoms: R01.1 - Cardiac murmur, unspecified Study Quality: Fair ECG Rhythm: Bradycardia Conclusions: - The left ventricular systolic function is normal. The calculated ejection fraction is 56% by biplane method. - There is severely increased left ventricular wall thickness. - There is mild calcification of the aortic valve. - No obvious valvular pathology seen on this study. Findings Left Ventricle Normal left ventricular cavity size. There is severely increased left ventricular wall thickness. The left ventricular systolic function is normal. The calculated ejection fraction is 56% by biplane method. There is no evidence of regional wall motion abnormalities. Diastolic function is indeterminate on the basis of available data. Right Ventricle Normal right ventricular cavity size. There is mildly decreased right ventricular systolic function. Atria Both atria are normal in size. Aortic Valve There is a normal trileaflet aortic valve. There is mild calcification of the aortic valve. There is no aortic valve stenosis. There is no aortic valve regurgitation. Mitral Valve The mitral valve appears normal. There is no mitral valve regurgitation. There is no mitral valve stenosis. Pulmonic Valve The pulmonic valve is likely normal. Tricuspid Valve There is trace tricuspid valve regurgitation. There is no evidence of pulmonary hypertension. Great Vessels The asc aorta is normal in size. Venous The inferior vena cava is normal in size and collapses greater than 50% with inspiration. Pericardium/Pleural There is no evidence of pericardial effusion. Prior Study Comparison No prior study available for comparison. Recommendations, Care & Conclusions No obvious valvular pathology seen on this study. Measurements 2D Linear Measurements IVSd: 1.87 0.6-0.9/0.6-1.0 cm LVIDd: 3.80 3.9-5.3/4.2-5.9 cm LVIDd Index: 1.70 2.4-3.2/2.2-3.1 cm/m2 LVIDs: 2.72 2.0-3.6 cm LVPWd: 1.47 0.7-1.1 cm LA Diam: 4.20 2.7-3.8/3.0-4.0 cm LAIDs Index: 1.88 1.5-2.3 cm/m2 LV Mass: 321.49 67-162/88-224 g LV Mass Index: 144.16 43-95/49-115 g/m2 LVOT Diam: 2.00 3.0+(-)1.3 cm 2D Systolic Function EF 4C: 59.00 >55% EF 2C: 51.20 >55% EF BiP: 55.50 >55% Mitral Valve MV Pk E: 0.94 MV PK A: 0.37 MV Decel Time: 282.00 E/A: 2.50 E'Lateral: 7.94 E'Medial: 4.57 E/E' Med: 20.50 E/E' Lat: 11.80 PHT: 83.00 MVA PHT: 2.65 Decel [place]: 3.32 Aortic Valve AoV Pk Jose: 2.00 AoV Mn Jose: 1.39 AoV VTI: 0.46 AoV Pk Grad: 16.00 Aov Mn Grad: 9.00 ANAHI Cont.VTI: 2.32 LVOT LVOT Pk Jose: 1.49 LVOT Mn Jose: 1.01 LVOT VTI: 0.34 LVOT Pk Grad: 9.00 LVOT Mn Grad: 5.00 LVOT Diam: 2.00 LVOT Area: 3.14 Diastolic Function MV Pk E: 0.94 MV Pk A: 0.37 E/A: 2.50 E'Medial: 4.57 E/E' Med: 20.50 E' Laterial: 7.94 E/E' Lat: 11.80 Right Ventricle TAPSE (mm): 15.30 TVS' Jose: 7.95 Tricuspid Valve TR Pk Jose: 2.01 TR Pk Grad: 16.00 RA Press: 3.00 RVSP: 19.00 Great Vessels Aorta Sinus of Valsalva: 3.30 2.0-3.5 cm Ao Asc: 3.40 2.1-3.4 cm Pulmonary Valve PV Pk Jose: 1.03 Peak PV Grad: 4.00 Updated in Other Vendor System with Status of Final Armaan Yoder MD electronically signed on 06/02/2023 11:30:29 AM with status of Final
== END ==
LOC: HO.CARD 10:59
PROVIDERS: PCP Nurse Practitioner Family; Visit Provider Nurse Practitioner Family
DX: R01.1 Cardiac murmur, unspecified (principal)
CPT/HCPCS: 93306

== ENCOUNTER → 2023-06-01 11:02 | Outpatient (BNV) | payer OTHER, SELFPAY | PROVIDERS: PCP Nurse Practitioner Family; Visit Provider Internal Medicine | DX: I35.8 Other nonrheumatic aortic valve disorders (principal) | CPT/HCPCS: 93306 ==

== ENCOUNTER 2023-07-07 09:17 | Outpatient (AMB) | payer OTHER, MEDICAID, SELFPAY ==
[2023-07-07 09:53] VITALS: BP 170/100; PULSE 40; TEMP 36.6; O2SAT 97; BMI 35.2
--- NOTE | 2023-07-07 09:53 | MHC.OFFWIV ---
Intake Vital Signs 07/07/23 09:53 Height 5 ft 10 in Weight 245 lb BMI 35.2 BP 170/100 H Blood Pressure Location Lt brachial Position Sitting Pulse 40 L Pulse Source Pulse Oximeter Temp 97.9 F Temp Source Temporal Artery Scan Pulse Oximetry (%) 97 Oxygen Delivery Method Room Air Intake Visit Reasons: EP SOB Intake Note: pt is here today for SOB started 2 weeks ago Patient Tobacco Use Status: Former Tobacco user Allergies jardiance Allergy (Intermediate, Uncoded 05/05/23 16:40) Rash trulicity Allergy (Intermediate, Uncoded 05/05/23 16:41) Muscle Pain Do you need a note to return to daycare/school/sports/work: No HPI HPI Comments History of Present Illness Details Patient is a 62yo M who presents with SOB He has hx of heart murmur, AV block and HTN Pt was taking medicine but stopped taking 1.5 months ago; due to joint pain He sees Trey for PCP Patient states hx of COPD and gets flare ups of SOB He lorenzo inhalers in past but has not used because he doesn't have at home SOB ongoing x 2 weeks + he said cough without congestion, ST or fever/chills + mucus production He said SOB at rest and with exertion Pt has tried Nyquil without relief He denies CP or chest pain Denies syncope, dizziness, light headedness, heart racing [facility] Medical History (Updated 07/07/23 @ 10:34 by Shannon Ramírez PA-C) Pneumococcal vaccination declined Rheumatoid arthritis Emphysema of lung Heart murmur High cholesterol HTN (hypertension) Surgical History H/O hernia repair Family History Father Hypertension Diabetes Mother Hypertension Diabetes Social History Housing: House Alcohol intake: never Patient Tobacco Use Status: Former Tobacco user Cigarette Packs Per Day: 3 service: No Cognitive needs: No Hearing needs: No Vision needs: No Review of Systems Const Reports body aches (when taking statin), Denies chills, Denies fever(s) and Denies headache(s) Eyes Denies blurry vision ENT Denies vertigo, Denies dizziness, Denies otalgia, Denies headache(s), Denies nasal discharge and Denies sore throat Card Denies chest pain, Denies rapid heart rate, Reports irregular heart rhythm, Denies leg edema, Denies lightheadedness, Denies palpitations, Reports dyspnea, Reports dyspnea on exertion and Reports slow heart rate Resp Reports chest congestion, Reports cough, Denies hemoptysis, Denies pain with cough, Reports dyspnea and Reports dyspnea on exertion GI Denies nausea and Denies vomiting Neuro Denies confusion, Denies vertigo, Denies dizziness, Denies headache(s), Denies lack of coordination and Denies focal weakness Psych Denies confusion Endo Denies palpitations Physical Exam Vital Signs: Last Vital Signs Temp 97.9 F 07/07/23 09:53 Pulse 40 L 07/07/23 09:53 BP 170/100 H 07/07/23 09:53 Pulse Ox 97 07/07/23 09:53 Oxygen Delivery Method Room Air 07/07/23 09:53 BMI result Body Mass Index 35.2 General: Non-toxic, NAD. Speaking full sentences. Skin: Warm dry throughout Eye: EOMI, PERRL HENT: Airway patent. Uvula midline. No pharyngeal erythema or edema. No NETWORK CONTROL OPERATOR. Bilateral canals clear. TM non-erythematous, non-bulging. No TM perforation or hemotympanum noted. Respiratory: + rhonchi bilaterally. No tachypnea. Cardiac: bradycardic rate MSK: Full ROM extremities. Neurology: A/O. No aphasia or facial droop. Gait without abnormality Psych: Good mood and affect Const General: No confusion Orientation/consciousness: No confusion Neuro General: No confusion Office Procedures EKG Details: EKG: sinus bradyacedia. 1st degree AV block with T wave inversions in I, II, AVL, AVF, V4-V6. Similar in comparison to Apr 2023. [id number], Complete Assessment & Plan Assessment & Plan (1) HTN (hypertension): Code(s): I10 - Essential (primary) hypertension Qualifiers: Hypertension type: primary hypertension Qualified Code(s): I10 - Essential (primary) hypertension Plan: Hypertensive in office; Same in April He has not been taking his statin, losartan or amlodipine x 1.5 months We had discussion on statin causing body aches and realize thats the reason for d/c We discussed uncontrolled HTN is a large risk for stroke, [place] and Pt still refused to go back on medication control Due to medication non-compliance, current bradycardia and SOB complaint, will obtain EKG and chest xray EKG reviewed and compared to EKG from 04/2023. + sinus bradycardia with 1st degree AV block. + t wave inversions I, AvF, AvL, V4-V6 Chest xray: cardiomeagly without change from previous when I compared. After repeat discussion of reults, patient opent to idea of restarting his anti-hypertensive meds. Will hold off on statin. Note sent to his pcp as pt would benefit from close follow up Prednisone and proair for lung abnormalities ER symptoms discussed with pt He is aware of risk of vitals and current medical conditions All questions answered (2) Dyspnea: Code(s): R06.00 - Dyspnea, unspecified Qualifiers: Dyspnea type: shortness of breath Qualified Code(s): R06.02 - Shortness of breath Plan: + abnormal lung sounds chest xray: see above Orders: Orders AMB EKG-In Office Today R06.00 - Dyspnea, unspecified XR chest 2V Today R06.00 - Dyspnea, unspecified Medications: New prednisone 40 mg (2 x 20 mg) PO DAILY 8 tabs 0RF albuterol sulfate 90 mcg/actuation 1 inh inhalation QID PRN 8.5 grams 0RF shortness of breath or wheezing Refilled amlodipine 2.5 mg PO DAILY 30 tabs 0RF losartan 25 mg PO DAILY 30 tabs 0RF Coding Level of Care Code Est Pt Level 4 (84305) Diagnoses Primary hypertension I10 Hypertension type: primary hypertension Shortness of breath R06.02 Dyspnea type: shortness of breath CPT Codes EKG - CPT: [id number], Complete ([id number])
== END 2023-07-07 10:44 | disposition home or self-care (01) ==
PROVIDERS: PCP Nurse Practitioner Family; Visit Provider Physician Assistant
DX: I10 Essential (primary) hypertension (principal); R06.02 Shortness of breath
CPT/HCPCS: 93000; 99214

== ENCOUNTER 2023-07-07 10:31 | Outpatient (REF) | payer OTHER, SELFPAY ==
--- NOTE | ~2023-07-07 | XR_ITS ---
EXAMINATION: XR CHEST CLINICAL INFORMATION: Dyspnea COMPARISON: Previous chest x-ray and chest CTA January 2023 TECHNIQUE: 2 views of the chest were obtained. FINDINGS: Cardiac and mediastinal contours are normal. Lungs are clear. No pleural effusion or pneumothorax. Degenerative changes of the spine.. XR/XR chest 2V IMPRESSION: Unremarkable examination.
== END 2023-07-07 10:32 | disposition home or self-care (01) ==
LOC: HO.HMGCX 10:31
PROVIDERS: PCP Nurse Practitioner Family; Visit Provider Physician Assistant
DX: R06.00 Dyspnea, unspecified (principal)
CPT/HCPCS: 71046

== ENCOUNTER → 2023-08-03 09:54 | Outpatient (BNVA) | payer OTHER, SELFPAY | PROVIDERS: PCP Nurse Practitioner Family; Visit Provider Nurse Practitioner Family ==

== ENCOUNTER 2023-08-10 12:31 | Outpatient (AMB) | payer OTHER, MEDICAID, SELFPAY ==
[2023-08-10 12:45] VITALS: BP 224/110; PULSE 37; O2SAT 99; BMI 35.3
--- NOTE | 2023-08-10 12:45 | MHC.PC.OV ---
Vital Signs 08/10/23 12:45 08/10/23 13:18 Height 5 ft 10 in Weight 246 lb BMI 35.3 BP 224/110 H Blood Pressure Location Rt brachial Position Sitting Pulse 37 L 52 Pulse Source Pulse Oximeter Pulse Oximetry (%) 99 Intake Visit Reasons: 3 MON F/U HTN/DM Allergies jardiance Allergy (Intermediate, Uncoded 08/10/23 13:33) Rash trulicity Allergy (Intermediate, Uncoded 08/10/23 13:33) Muscle Pain Medication List - Last Reconciled 08/10/23 by TOM Gonzalez-SAGE albuterol sulfate 90 mcg/actuation 1 inh inhalation QID PRN irbesartan-hydrochlorothiazide 150-12.5 mg 1 tab PO DAILY Tobacco use date assessed: 05/05/23 Dental Screening Dental Screen Date: 05/05/23 HPI 3 MON F/U HTN/DM HPI Details Pt is a diabetic. A1C in office today is 6.7. Due for microalbumin, will order. Denies polyuria, polydipsia, and neuropathy. Pt denies any signs and symptoms of hypoglycemia and does know how to correct it. Eye exam is up to date. HTN: Pt's blood pressure is very elevated. He was started on medication at his last visit but pt stopped these, reporting they made his bones hurt. Will start irbesartan-hydrochlorothiazide 150-12.5mg and amlodipine 2.5mg. Will have pt monitor his blood pressure at home and drop off readings in 3 weeks. Denies chest pain, shortness of breath, headache, dizziness, and blurred vision. Pt has an upcoming appointment with cardiology. I truly reinforced the importance of stable BP, and dangers of high BPs (ex. stroke, [place], ). [facility] Medical History Pneumococcal vaccination declined Rheumatoid arthritis Emphysema of lung Heart murmur High cholesterol HTN (hypertension) Surgical History Hx of colonoscopy H/O hernia repair Family History Father Hypertension Diabetes Mother Hypertension Diabetes Social History Housing: House Alcohol intake: never Patient Tobacco Use Status: Former Tobacco user Cigarette Packs Per Day: 3 service: No Cognitive needs: No Hearing needs: No Vision needs: No Review of Systems Const Reports as per HPI Physical exam (Primary Care) Vital Signs: Last Vital Signs Pulse 37 L 08/10/23 12:45 BP 224/110 H 08/10/23 12:45 Pulse Ox 99 08/10/23 12:45 BMI result Body Mass Index 35.3 Tobacco/Smoking Status: Tobacco use Status Tobacco use date assessed 05/05/23 08/10/23 12:49 Patient Tobacco Use Status Former Tobacco user 08/10/23 12:49 Const General: cooperative Nutritional Appearance: obese Orientation/consciousness: patient oriented x3 Resp Effort & Inspection: normal respiratory effort Auscultation: clear to auscultation bilaterally Cardio Rate: bradycardic Rhythm: regular rhythm Heart sounds: S1 normal heart sound present, S2 normal heart sound present and Murmur heart sound present systolic (faint) Neuro General: patient oriented x3 Extrem Other: bilat feet: + sensation with use of monofilament, feet intact Right lower extremity: no edema Left lower extremity: no edema Psych Appearance: grossly normal Mental Status: mental status grossly normal Speech and movement: Normal speech and movement present Affect: normal affect Attitude: cooperative Thought process: Normal thought process present Thought content: Normal thought content present Insight: Good insight present (Psych) Judgement: Good judgement present (Psych) Results AMB Hemoglobin A1c AMB Hemoglobin A1c 6.7 % Last Edit by Ab Sinha CMA on 08/10/23 13:04 Results Reviewed Results Reviewed: Laboratory Last Values Hgb A1c (Clinic) 6.7 % (4.0-6.0) H 08/10/23 12:42 Assessment and Plan Assessment & Plan (1) Diabetes: Code(s): E11.9 - Type 2 diabetes mellitus without complications (2) Uncontrolled hypertension: Code(s): I10 - Essential (primary) hypertension Plan: pt originally stopped all meds prescribed during last OV. Will represcribe medications for his BP. Pt understood the dangers of uncontrolled htn, including . Echo already performed, pt seeing cardiology in the near future, also dropping off BPs for me to look at. Plan The patient agreed to the use of a medical billing and coding specialist for this encounter. Scribed for TOM Knight- by Sofi Chand medical billing and coding specialist, on 08/10/2023 at 13:10 EST. Orders: Orders AMB Hemoglobin A1c Today Z13.9 - Encounter for screening, unspecified Microalbumin, Random (w Creat) Today E11.9 - Type 2 diabetes mellitus without complications Medications: New irbesartan-hydrochlorothiazide 150-12.5 mg 1 tab PO DAILY 90 tabs 0RF amlodipine 2.5 mg PO DAILY 90 tabs 0RF Coding Level of Care Code Est Pt Level 3 (30661) Diagnoses Diabetes E11.9 Uncontrolled hypertension I10
[2023-08-10 13:18] VITALS: PULSE 52
== END 2023-08-10 14:17 | disposition home or self-care (01) ==
PROVIDERS: PCP Nurse Practitioner Family; Visit Provider Nurse Practitioner Family
DX: E11.9 Type 2 diabetes mellitus without complications (principal); I10 Essential (primary) hypertension
CPT/HCPCS: 83036; 99213

== ENCOUNTER 2023-08-26 08:43 | Outpatient (AMB) | payer OTHER, SELFPAY ==
--- NOTE | 2023-08-26 08:56 | A.OFFVIS_ITS ---
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 He recently had an echocardiogram for systolic murmur noted. This showed calcified aortic valve without aortic stenosis although showed severe LV hypertrophy or wall thickness. He said he has had hypertension for 25 years but has mostly been uncontrolled all his life. Recently started on medication with amlodipine as well as irbesartan hydrochlorothiazide combination. He said he has been taking the religiously. He denies any cardiac symptoms. Noted on EKG during your visit to have marked sinus bradycardia. Although he said he has no symptoms of exertional fatigue, lightheadedness, syncope. He denies any palpitations. Denies any prolonged irregular heartbeat. Does say that he snores a lot as per the and has daytime somnolence. He said otherwise his energy level is pretty well. He does get exertional shortness of breath but he says this is related to his COPD uses smoke a lot in the past. He also has lot of wheezing. No family history of hypertrophic cardiomyopathy or premature sudden cardiac that. He has no prior history of vascular disease or myocardial infarction coronary artery disease. [facility] Medical History (Updated 08/26/23 @ 09:58 by Lionel Diaz MD) Hypertensive heart disease Pneumococcal vaccination declined Rheumatoid arthritis Emphysema of lung Heart murmur High cholesterol HTN (hypertension) Surgical History Hx of colonoscopy H/O hernia repair Family History Father Hypertension Diabetes Mother Hypertension Diabetes Social History Housing: House Alcohol intake: never Patient Tobacco Use Status: Former Tobacco user Cigarette Packs Per Day: 3 service: No Cognitive needs: No Hearing needs: No Vision needs: No Review of Systems Const Denies weakness ENT Denies dizziness Card Denies chest pain, Denies chest pain with activity, Denies syncope, Denies rapid heart rate, Denies pedal edema, Denies edema, Denies leg edema, Denies lightheadedness, Denies palpitations, Denies dyspnea, Denies dyspnea on exertion and Denies orthopnea Resp Denies cough, Denies dyspnea and Denies dyspnea on exertion GI Denies hematochezia and Denies change in stool character Musc Denies abnormal gait, Denies muscle cramps, Denies muscle weakness, Denies numbness, Denies radiating pain into limb and Denies tingling Neuro Denies abnormal gait, Denies dizziness, Denies syncope, Denies numbness, Denies tingling and Denies weakness Endo Denies palpitations Physical Exam Vital Signs: Last Vital Signs Pulse 40 L 08/26/23 08:57 BP 158/80 H 08/26/23 08:57 BMI result Body Mass Index 37.6 Const General: cooperative, comfortable, no acute distress, well developed, alert, awake and Physically active Nutritional Appearance: well nourished and obese Orientation/consciousness: patient oriented x3 Limitations: no limitations HEENT Head: Yes normocephalic and Yes atraumatic Neck Neck: Yes trachea midline, Yes supple and Yes no JVD Resp Effort & Inspection: normal respiratory effort Auscultation: clear to auscultation bilaterally and diminished lung sounds Cardio Jugular venous distension: no JVD Palpation: normal PMI Rate: regular rate Rhythm: regular rhythm Heart sounds: S1 normal heart sound present, S2 normal heart sound present, no click, no gallops, no murmurs and Other heart sounds present (S4 present) GI Inspection: Yes obesity Auscultation: normal bowel sounds Skin General skin exam: no rashes or lesions noted Neuro General: patient oriented x3 and no focal motor deficits Extrem General: Yes no clubbing, cyanosis or edema Psych Appearance: grossly normal Office Procedures EKG Details: EKG shows sinus bradycardia 47 beats per minute with first-degree AV block with PVCs with LVH with repolarization abnormality as well as QRS widening. [id number], Complete Assessment & Plan Assessment & Plan (1) Hypertensive heart disease: Code(s): I11.9 - Hypertensive heart disease without heart failure Category: Medical Plan: Hypertensive heart disease with severe left ventricular hypertrophy most likely due to prolonged uncontrolled hypertension. This is most likely responsible for his abnormal EKG as well. Discussed with him importance of blood pressure control which is necessary to prevent further LV remodeling and causing congestive heart failure. He is already at high risk for development of congestive heart failure given his significant left ventricular hypertrophy. Much improved blood pressure control is necessary. This was discussed with him. Will increase amlodipine to 5 mg and take it at nighttime as well as increase his irbesartan hydrochlorothiazide to 300-12.5 mg daily. Advised to monitor blood pressure at home at different times. Low-salt diet was discussed. There is high likelihood of him having obstructive sleep apnea. He will require a home sleep study for the same. Given his significantly abnormal EKG would suggest to have a exercise myocardial perfusion imaging to evaluate for myocardial ischemia as this may also impact his prognosis. This was discussed with him. He understands agrees. Advise low-dose aspirin therapy given his calcific aortic valve changes. (2) Sinus bradycardia: Code(s): R00.1 - Bradycardia, unspecified Category: Medical Plan: Sinus bradycardia which is asymptomatic but significant. This is suggestive sinoatrial node dysfunction. He has currently not on any rate lowering medication however sinus bradycardia reduce his use of other medications to control his blood pressure suggest beta-elvira therapy which can potentially worsen his sinus bradycardia and cause him to have symptoms. Will obtain Holter monitor to assess for any significant pauses or bradycardia that may necessitate pacemaker therapy although he says he has not going to undergo pacemaker placement. Also exercise stress test as above to evaluate for chronotropic competence. Sleep study as above as well. Will follow up in the clinic in 6 weeks time, sooner p.r.n.. Thank you for allowing me to partake in his care Medications: New irbesartan-hydrochlorothiazide 300-12.5 mg 1 tab PO DAILY 90 tabs 1RF amlodipine 5 mg PO QPM 90 tabs 1RF Discontinued irbesartan-hydrochlorothiazide 150-12.5 mg Discontinued Reason: Doctor's Order 1 tab PO DAILY 90 tabs 0RF amlodipine Discontinued Reason: Doctor's Order 2.5 mg PO DAILY 90 tabs 0RF Coding Level of Care Code New Pt Level 4 (60753) Diagnoses Hypertensive heart disease I11.9 Sinus bradycardia R00.1 CPT Codes EKG - CPT: 04930-[id number], Complete ([id number])
[2023-08-26 08:57] VITALS: BP 158/80; PULSE 40; BMI 37.6
== END 2023-08-26 09:39 | disposition home or self-care (01) ==
PROVIDERS: PCP Nurse Practitioner Family; Visit Provider Internal Medicine Cardiovascular Disease
DX: I11.9 Hypertensive heart disease without heart failure (principal); R00.1 Bradycardia, unspecified
CPT/HCPCS: 93010; 99204

== ENCOUNTER → 2023-08-26 08:43 | Outpatient (BNVA) | payer OTHER, SELFPAY | PROVIDERS: PCP Nurse Practitioner Family; Visit Provider Internal Medicine Cardiovascular Disease | DX: I11.9 Hypertensive heart disease without heart failure (principal); R00.1 Bradycardia, unspecified | CPT/HCPCS: 93005; 99202 ==

== ENCOUNTER → 2023-09-30 08:42 | Outpatient (REF) | payer OTHER, SELFPAY | LOC: HO.SL 08:42 | PROVIDERS: PCP Nurse Practitioner Family; Visit Provider Internal Medicine Cardiovascular Disease | DX: G47.33 Obstructive sleep apnea (adult) (pediatric) (principal); G47.19 Other hypersomnia; I10 Essential (primary) hypertension | CPT/HCPCS: 95806 ==

== ENCOUNTER → 2023-09-30 08:55 | Outpatient (BNV) | payer OTHER, SELFPAY | PROVIDERS: PCP Nurse Practitioner Family; Visit Provider Internal Medicine | DX: G47.33 Obstructive sleep apnea (adult) (pediatric) (principal) | CPT/HCPCS: 95806 ==

== ENCOUNTER → 2023-10-04 08:21 | Outpatient (REF) | payer OTHER, SELFPAY ==
--- NOTE | ~2023-10-04 | NM_ITS ---
Exercise Myocardial perfusion study Indication: Chest pain to evaluate for myocardial ischemia Technique: The patient was brought in for an exercise perfusion study on 10/04/2023. Patient performed exercise as per Jer protocol and was injected 35 mCi of sestamibi was given intravenously one target HR was achieved. Images were obtained using the SPECT gamma camera interlaced with the gating device. Images were obtained in supine position. Resting perfusion study was performed on 10/07/2023. Patient was administered 35 mCi of sestamibi intravenously at rest. Images were then obtained in supine position. Images obtained with and without CT attenuation. Total DLP 115 mGy-cm. Images were processed with the software and compared side to side in short axis, horizontal long axis and vertical long axis views. Findings: The stress perfusion study showed non attenuated images show diffuse thinning of the inferior wall with mildly to moderately reduced uptake in the distal anterior wall of the LV myocardium, moderately to severely reduced uptake in the basal inferior wall of the LV myocardium as well as mildly reduced uptake in the basal inferolateral and lateral wall of myocardium on attenuated corrected images show mildly reduced uptake in the anteroapical and apical wall of the LV myocardium.. The gated study shows normal LV systolic function with calculated LVEF of 52%. LV cavity is mildly dilated in size. The gated study shows normal systolic wall thickening and contraction of all segments. There is no transient ischemic dilation. Resting study shows no change in perfusion pattern compared to stress perfusion study. Gating at rest reveals normal systolic wall motion with ejection fraction at 42%. The findings are consistent with no clear reversible ischemia. NM/NM cardiolite stress test Impression: 1. Likely normal myocardial perfusion 2. Gated LVEF is 52% with stress and 42% with rest 3. Transient ischemic dilatation not present but LV cavity is dilated Stress EKG is positive for ischemia
--- NOTE | 2023-10-04 08:24 | CA_ITS ---
Acquisition Time: 2023-10-04 08:30:01 Total Exercise Time: 00:05:44 Test Indications: Abnormal ECG ABN ECHO Medications: AMLODIPINE IRBESARTAN/HCTZ ALBUTEROL Protocol: WILLIAM Max HR: 122 BPM 78% of Pred: 156 BPM Max BP: 220/108 mmHG Max Work Load: 7.0 METS Exercise stress test exercise 5 min 44 sec of William protocol achieving 76% MPHR, with moderate SOB, no chest discomfort, with hypertensive response to exercise, with frequent PVCs and isolated PACs venticular bigeminy, without ST changes. Nuclear images pending. Test reviewed with Dr. Yoder. Referred By: Lionel Diaz Overread By: Danica Eastman
--- NOTE | 2023-10-04 08:24 | HM_ITS ---
Conclusion: 1. Patient was monitored for total period of 2 days and 21 hours 2. Baseline was normal sinus rhythm with average heart of 46 beats per minute 3. No significant pauses noted but frequent sinus bradycardia noted with 90% of time heart rate below 60 beats per minute with occasional marked sinus bradycardia mostly during sleep hours 4. Occasional PACs and PVCs noted 5. No patient reported events MTDD
== END ==
LOC: HO.CARD 08:21
PROVIDERS: PCP Nurse Practitioner Family; Visit Provider Internal Medicine Cardiovascular Disease
DX: R07.9 Chest pain, unspecified (principal); I11.9 Hypertensive heart disease without heart failure; R06.02 Shortness of breath; R00.1 Bradycardia, unspecified
CPT/HCPCS: 78452; 93017; 93242; A9500

== ENCOUNTER → 2023-10-04 08:24 | Outpatient (BNV) | payer OTHER, SELFPAY | PROVIDERS: PCP Nurse Practitioner Family; Visit Provider Nurse Practitioner | DX: I49.1 Atrial premature depolarization (principal); I49.3 Ventricular premature depolarization | CPT/HCPCS: 78452; 93016; 93018; 93244 ==

== ENCOUNTER 2023-10-11 09:01 | Outpatient (AMB) | payer OTHER, SELFPAY ==
--- NOTE | 2023-10-11 09:23 | MHC.OFFVIS ---
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 Allergies jardiance Allergy (Intermediate, Uncoded 10/11/23 09:25) Rash trulicity Allergy (Intermediate, Uncoded 10/11/23 09:25) Muscle Pain Medication List - Last Reconciled 10/11/23 by Nicolasa Velasquez, DESHAWN-C albuterol sulfate 90 mcg/actuation 1 inh inhalation QID PRN amlodipine 5 mg PO QPM irbesartan-hydrochlorothiazide 300-12.5 mg 1 tab PO DAILY HPI HPI 6wk follow up /stress test/holter: Details: Prince is a 63-year-old male with past medical history of obesity, hypertension, hyperlipidemia, hypertensive heart disease who recently underwent a Holter monitor, stress test and sleep study and now presents for follow-up. Today he reports that he feels well with no concerning symptoms. Denies chest discomfort at rest or with activity. He denies shortness of breath, palpitations, lightheadedness, presyncope, syncope, PND, orthopnea or edema. He does take a nap in the daytime which is his norm. Tells me he wakes up at 03:00 each day which is not new. He is compliant with his medications. Home blood pressures have been ranging around 150s over 80s. He is not interested in pacemaker placement. He has a pulmonology visit scheduled for 11/10/2023. [facility] Medical History Hypertensive heart disease Pneumococcal vaccination declined Rheumatoid arthritis Emphysema of lung Heart murmur High cholesterol HTN (hypertension) Surgical History Hx of colonoscopy H/O hernia repair Family History Father Hypertension Diabetes Mother Hypertension Diabetes Social History Housing: House Alcohol intake: never Patient Tobacco Use Status: Former Tobacco user Cigarette Packs Per Day: 3 service: No Cognitive needs: No Hearing needs: No Vision needs: No Review of Systems Const All systems reviewed & are unremarkable except as noted in HPI and below ENT Denies dizziness Card Denies chest pain, Denies chest pain at rest, Denies chest pain with activity, Denies rapid heart rate, Denies pedal edema, Denies edema, Denies leg edema, Denies lightheadedness, Denies palpitations, Denies dyspnea, Denies dyspnea on exertion and Denies orthopnea Resp Denies cough, Denies dyspnea and Denies dyspnea on exertion GI Denies hematochezia and Denies change in stool character Musc Denies abnormal gait, Denies limited range of motion, Denies muscle cramps, Denies muscle weakness, Denies numbness, Denies radiating pain into limb, Denies stiffness and Denies tingling Neuro Denies abnormal gait, Denies dizziness, Denies numbness and Denies tingling Endo Denies palpitations Physical Exam Vital Signs: Last Vital Signs Pulse 44 L 10/11/23 09:24 BP 160/82 H 10/11/23 09:24 BMI result Body Mass Index 34.3 Const General: cooperative, healthy appearing, comfortable and no acute distress Orientation/consciousness: patient oriented x3 Neck Neck: Yes normal visual inspection and Yes no JVD Resp Effort & Inspection: normal respiratory effort Auscultation: clear to auscultation bilaterally, no crackles, no rales, no rhonchi and no wheezes Cardio Jugular venous distension: no JVD Rate: regular rate Rhythm: regular rhythm Heart sounds: S1 normal heart sound present, S2 normal heart sound present, no murmurs and no rubs Neuro General: patient oriented x3 Extrem General: Yes normal to inspection and No no pedal edema Psych Appearance: grossly normal Mental Status: mental status grossly normal Speech and movement: Normal speech and movement present Office Procedures EKG Details: Today, read by me, marked sinus bradycardia with sinus arrhythmia, first-degree AV block, ST and T-wave abnormality, possible inferior lateral ischemia, septal Q-wave, LV H with repolarization abnormality, rate 44, QTC 448 milliseconds [id number], Complete Assessment & Plan Assessment & Plan (1) Uncontrolled hypertension: Code(s): I10 - Essential (primary) hypertension Category: Medical Plan: History of hypertension. Currently not optimally controlled. He is on amlodipine 5 mg daily and irbesartan /hydrochlorothiazide, 300/12.5. He tells me he is noticing some pain along the outside of his knees and hips as well as some itchy spots on his lower legs and forearms but no hives or rashes. He believes these symptoms are from the medications. Home blood pressures are averaging 150s over 80s. Initial blood pressure today 160/82, recheck done by me 172/80. Will avoid use of heart rate slowing medications as he does have significant sinus bradycardia. At this time will increase his amlodipine up to 10 mg daily. Follow low-salt diet. Increase physical activity as able, work on weight loss. Cardiology follow-up 6 weeks, sooner if needed. (2) Hypertensive heart disease: Code(s): I11.9 - Hypertensive heart disease without heart failure Category: Medical Plan: Echocardiogram done 06/01/2023 shows EF 56%, severe LVH, mild calcification of the aortic valve. He does have a history of hypertension which has been uncontrolled. This can account for the LVH seen. He has also been found to have very severe untreated sleep apnea. An exercise nuclear stress test was done on 10/04/2023 showing exercise close to 6 minutes, moderate shortness of breath, hypertensive response with max blood pressure 220/108, nondiagnostic EKG, normal myocardial perfusion imaging. He has no signs of heart failure on examination. The finding of LVH has been reviewed with him and he does state understanding. (3) Sinus bradycardia: Code(s): R00.1 - Bradycardia, unspecified Category: Medical Plan: EKGs show sinus bradycardia. Holter monitor done 10/04/2023 shows sinus bradycardia with first-degree AV block, transient junctional rhythm, episode of marked sinus bradycardia with low heart rate 28, 89% of the time heart rate less than 60, no high-degree heart block, heart rate range 28 to 98 with average 46. Holter monitor results reviewed with him. He reports feeling well with no lightheadedness, presyncope, syncope, falls. He reports good activity tolerance. During recent stress test he did have evidence of some chronotropic incompetence with max heart rate 76% MPHR. On last visit and today he states he is not interested in pacemaker placement. Since he is asymptomatic at this time will plan to readdress next visit. Informed him that at some time pacemaker may be urgently needed. Avoid all rate slowing agents. He does have significant sleep apnea. Will plan to recheck Holter once sleep apnea treatment has been initiated. (4) Sleep apnea: Code(s): G47.30 - Sleep apnea, unspecified Category: Medical Plan: Sleep study done on 10/07/2023 shows very severe obstructive sleep apnea. CPAP is recommended. He was referred to pulmonology. He tells me he does not have a visit until 11/10/2023. Will forward this note to Dr. Doe, as sleep study was read by him. We request that patient have a sooner appointment and or start CPAP prior to his visit. Plan Time spent on chart review, documentation, interview and assessment Medications: New amlodipine Dose increased 10 mg PO DAILY 30 tabs 3RF Discontinued amlodipine Discontinued Reason: Doctor's Order 5 mg PO QPM 90 tabs 1RF Coding Level of Care Code Est Pt Level 4 (51387) Diagnoses Uncontrolled hypertension I10 Hypertensive heart disease I11.9 Sinus bradycardia R00.1 Sleep apnea G47.30 CPT Codes EKG - CPT: 45918-[id number], Complete ([id number]) Time Spent (min) 28
[2023-10-11 09:24] VITALS: BP 160/82; PULSE 44; BMI 34.3
== END 2023-10-11 10:08 | disposition home or self-care (01) ==
PROVIDERS: PCP Nurse Practitioner Family; Visit Provider Nurse Practitioner Family
DX: I10 Essential (primary) hypertension (principal); I11.9 Hypertensive heart disease without heart failure; R00.1 Bradycardia, unspecified; G47.30 Sleep apnea, unspecified
CPT/HCPCS: 93010; 99214

== ENCOUNTER → 2023-10-11 09:01 | Outpatient (BNVA) | payer OTHER, SELFPAY | PROVIDERS: PCP Nurse Practitioner Family; Visit Provider Nurse Practitioner Family | DX: I11.9 Hypertensive heart disease without heart failure (principal); R00.1 Bradycardia, unspecified; G47.30 Sleep apnea, unspecified | CPT/HCPCS: 93005; 99212 ==

== ENCOUNTER 2023-11-10 10:50 | Outpatient (AMB) | payer OTHER, SELFPAY ==
--- NOTE | 2023-11-10 11:02 | MHC.OFFVIS ---
Vital Signs 11/10/23 11:03 Height 5 ft 10 in Weight 242 lb 8.136 oz BMI 34.8 BP 142/82 H Blood Pressure Location Lt brachial Position Sitting Pulse 45 L Pulse Source Pulse Oximeter Pulse Oximetry (%) 97 Oxygen Delivery Method Room Air Intake Visit Reasons: liz Intake Note: pt is here as a new patient to go over sleep study. Transfill Technician Required: No Allergies jardiance Allergy (Intermediate, Uncoded 11/10/23 11:34) Rash trulicity Allergy (Intermediate, Uncoded 11/10/23 11:34) Muscle Pain Medication List - Last Reconciled 11/10/23 by Aniket Doe MD albuterol sulfate 90 mcg/actuation 1 inh inhalation QID PRN amlodipine 10 mg PO DAILY irbesartan-hydrochlorothiazide 300-12.5 mg 1 tab PO DAILY Do you need a note to return to daycare/school/sports/work: No HPI HPI liz: Details: THIS 63 YEARS OLD GENTLEMAN IS BEING SEEN FOR THE FIRST TIME FOR OBSTRUCTIVE SLEEP APNEA MANAGEMENT. RECENTLY HE HAS BEEN EVALUATED BY CARDIOLOGY SERVICE FOR UNCONTROLLED HYPERTENSION AND RELATIVE BRADYCARDIA. HE WAS FOUND TO HAVE CHRONIC HYPERTENSIVE HEART DISEASE, AORTIC STENOSIS, AND SINUS BRADYCARDIA. BECAUSE HE IS MARKEDLY OVERWEIGHT HE WAS SUBMITTED TO HOME SLEEP STUDY. THE SLEEP STUDY SHOWS A VERY SEVERE DEGREE OF OBSTRUCTIVE SLEEP APNEA. THE PATIENT STATES THAT HE SLEEPS WELL DURING THE NIGHT AND WAKES ONCE OR TWICE TO GO TO THE BATHROOM. HE DOES HAVE TENDENCY TO TAKE A NAP IN THE AFTERNOON. HE WAS TOLD BY HIS DAUGHTER THAT HE SNORES QUITE HEAVY AT NIGHT. HE HIMSELF IS NOT AWARE OF SNORING AND OR ANY PROBLEM WITH SLEEPING. 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 OF LIFESTYLE HE ADMITS TO HAVING GAINED WEIGHT IN THE LAST FEW YEARS. HE DENIES ANY CHRONIC PULMONARY DISEASE . HE DOES SMOKE ABOUT 3-4 CIGARETTES A DAY. [facility] Medical History (Updated 11/10/23 @ 11:53 by Aniket Doe MD) Obesity (BMI 30-39.9) LIZ (obstructive sleep apnea) Hypertensive heart disease Pneumococcal vaccination declined Rheumatoid arthritis Emphysema of lung Heart murmur High cholesterol HTN (hypertension) Surgical History Hx of colonoscopy H/O hernia repair Family History Father Hypertension Diabetes Mother Hypertension Diabetes Social History Housing: House Alcohol intake: never Patient Tobacco Use Status: Former Tobacco user Cigarette Packs Per Day: 3 service: No Cognitive needs: No Hearing needs: No Vision needs: No Review of Systems Const All systems reviewed & are unremarkable except as noted in HPI and below Eyes Reports no additional complaints ENT Reports no additional complaints Card Denies chest pain, Denies syncope, Denies leg edema and Denies dyspnea Resp Denies cough, Denies hemoptysis, Denies dyspnea and Denies wheezing GI Reports no additional complaints Reports no additional complaints Musc Reports no additional complaints Skin/Breast Reports system reviewed and no additional complaints, except as documented Neuro Reports no additional complaints and Denies syncope Psych Reports no additional complaints Endo Reports no additional complaints Lukas/Lymph Reports no additional complaints Aller/Immun Reports no additional complaints and Denies wheezing Physical Exam Vital Signs: Last Vital Signs Pulse 45 L 11/10/23 11:03 BP 142/82 H 11/10/23 11:03 Pulse Ox 97 11/10/23 11:03 Oxygen Delivery Method Room Air 11/10/23 11:03 BMI result Body Mass Index 34.8 Const General: healthy appearing ( EXCEPT FOR BEING OVERWEIGHT), comfortable, no acute distress, alert and awake Orientation/consciousness: patient oriented x3 HEENT Head: Yes normal to inspection General nose exam: No nasal polyps present and No nasal discharge present Face and sinus: Yes sinuses nontender Mouth: oropharynx abnormals ( OROPHARYNX IS NARROW, MALLAMPATI CLASS 4) Throat: Yes posterior oropharynx normal Eyes General: appearance normal, both eyes and all related structures Neck Neck: Yes normal visual inspection, Yes no lymphadenopathy, Yes trachea midline, Yes no JVD and Yes other ( NECK CIRCUMFERENCE 17 IN) Thyroid: Thyroid normal Chest Chest palpation & inspection: normal inspection of the chest, normal palpation of entire chest wall and no tenderness Resp Effort & Inspection: normal respiratory effort Auscultation: clear to auscultation bilaterally, no rhonchi and no wheezes Cardio Palpation: normal PMI Rate: regular rate Rhythm: regular rhythm Heart sounds: no gallops and Murmur heart sound present ( A FAINT SYSTOLIC MURMUR AT AORTIC AREA) Peripheral pulses: Peripheral pulses 2+ throughout GI Palpation (GI): Soft to palpation, Tenderness to palpation present (GI), No hepatosplenomegaly present and Palpable mass present Auscultation: normal bowel sounds Back/Spine/Pelvis Thoracic/Lumbar Spine: thoracic and lumbar spine normal to inspection Skin General skin exam: no rashes or lesions noted Neuro General: patient oriented x3 and no focal motor deficits Cranial nerves: Yes CN's II-XII intact bilaterally Extrem General: Yes normal to inspection, Yes no clubbing, cyanosis or edema and Yes no calf tenderness Psych Speech and movement: Normal speech and movement present Results Reviewed Results Reviewed: HOME-BASED SLEEP STUDY ON 09/30/2023 IS REVIEWED. TOTAL SLEEP TIME AHI 54.8 AND SNORING FOR 18.4% OF THE SLEEP TIME. O2 SAT BELOW 88% FOR 30 MINUTES Assessment & Plan Assessment & Plan (1) LIZ (obstructive sleep apnea): Comment: HIS PHYSICAL FEATURES OR TYPICAL OF OBSTRUCTIVE SLEEP APNEA. HOME-BASED SLEEP STUDY CONFIRMS PRESENCE OF RATHER SEVERE OBSTRUCTIVE SLEEP APNEA WITH NOCTURNAL HYPOXEMIA. Code(s): G47.33 - Obstructive sleep apnea (adult) (pediatric) Category: Medical Plan: PATIENT EDUCATED ABOUT THE SLEEP APNEA. EDUCATED ABOUT TREATMENT OPTIONS. HE HAS AGREED TO START USING THE CPAP THERAPY. I HAVE ORDERED CPAP THERAPY WITH AUTO PAP MODE AND PRESSURE SETTING OF 6-20 CM, WITH A FULLFACE OR NASAL MASK WHICH EVER HE TOLERATES BETTER. HE WILL NEED TO BE MONITORED CLOSELY FOR COMPLIANCE AND BENEFITS. ONCE HE STARTS USING CPAP REGULARLY WE WILL DO OVERNIGHT OXIMETRY RECORDING TO MAKE SURE THAT HYPOXEMIA IS CORRECTED. (2) Obesity (BMI 30-39.9): Comment: PATIENT IS MODERATELY OBESE, NEEDS TO LOSE WEIGHT. Code(s): E66.9 - Obesity, unspecified Category: Medical Plan: PATIENT EDUCATED ABOUT THE RELATIONSHIP OF INCREASED WEIGHT AND SLEEP APNEA. EDUCATED ABOUT DIET AND EXERCISE TO LOSE WEIGHT. ONCE HE STARTS USING THE CPAP THERAPY HE WILL FEEL MORE ENERGETIC AND HE WILL NEED TO START WALKING ON A DAILY BASIS. (3) Hypertensive heart disease: Comment: THIS GENTLEMAN IS BEING FOLLOWED BY C.ARDIOLOGY SERVICE IS BEING TREATED, FOR HY PERTENSION AND WATCHED FOR HYPERTENSIVE HEART DISEASE. Code(s): I11.9 - Hypertensive heart disease without heart failure Category: Medical Plan: ADVISED TO CONTINUE CLOSE FOLLOW-UP WITH THE CARDIOLOGY SERVICE. Coding Level of Care Code New Pt Level 3 (89334) Diagnoses LIZ (obstructive sleep apnea) G47.33 Obesity (BMI 30-39.9) E66.9 Hypertensive heart disease I11.9
[2023-11-10 11:03] VITALS: BP 142/82; PULSE 45; O2SAT 97; BMI 34.8
== END 2023-11-10 11:29 | disposition home or self-care (01) ==
PROVIDERS: PCP Nurse Practitioner Family; Visit Provider Internal Medicine
DX: G47.33 Obstructive sleep apnea (adult) (pediatric) (principal); I11.9 Hypertensive heart disease without heart failure; E66.9 Obesity, unspecified; Z68.34 Body mass index [BMI] 34.0-34.9, adult
CPT/HCPCS: 99213

== ENCOUNTER → 2023-11-10 10:50 | Outpatient (BNVA) | payer OTHER, SELFPAY | PROVIDERS: PCP Nurse Practitioner Family; Visit Provider Internal Medicine | DX: G47.33 Obstructive sleep apnea (adult) (pediatric) (principal); I11.9 Hypertensive heart disease without heart failure; E66.9 Obesity, unspecified; Z68.34 Body mass index [BMI] 34.0-34.9, adult | CPT/HCPCS: 99212 ==